=== PATIENT | female | born 1970 | race Caucasian/White ===

== ENCOUNTER 2021-06-29 09:57 | Outpatient (REF) | payer OTHER, SELFPAY ==
--- NOTE | ~2021-06-29 | US_ITS ---
EXAMINATION: US ABDOMEN COMPLETE CLINICAL INFORMATION: Right upper quadrant abdominal swelling, mass and lump. COMPARISON: None TECHNIQUE: Real-time imaging of the abdominal viscera. FINDINGS: PANCREAS: Normal. ABDOMINAL AORTA: The proximal, mid, and distal segments are normal in caliber. INFERIOR VENA CAVA: Visualized portions are normal. LIVER: Slightly enlarged measuring up to 18.2 cm. The liver contour is normal. There is diffuse increased liver parenchymal echogenicity, consistent with hepatic steatosis. Probable right hepatic focal fatty sparing. No focal hepatic lesion. There is no intrahepatic biliary duct dilatation seen. GALLBLADDER: Normal. The gallbladder is physiologically distended without evidence of stones, sludge, polyps, wall thickening or pericholecystic fluid. COMMON BILE DUCT: Normal in caliber measuring 0.3 cm in diameter. RIGHT KIDNEY: Normal. No hydronephrosis. No renal calculi or focal parenchymal lesions. The kidney measures 11.7 cm in maximum dimension. LEFT KIDNEY: Simple lower pole cyst measuring 1.2 cm. Findings are not clinically significant, and no followup imaging is recommended. No hydronephrosis or renal calculi. The kidney measures 11.6 cm in maximum dimension. SPLEEN: Normal. The spleen measures 10.1 cm in maximum dimension. FREE FLUID: None. US/US abdomen complete IMPRESSION: 1. Mild hepatomegaly. Hepatic steatosis with focal fatty sparing. No additional hepatic parenchymal lesion or biliary ductal dilatation. 2. No cholelithiasis, gallbladder wall thickening, or pericholecystic free fluid to suggest acute cholecystitis.
== END 2021-06-29 09:58 | disposition home or self-care (01) ==
LOC: HO.HMGCX 09:57
PROVIDERS: PCP Internal Medicine; Visit Provider Internal Medicine
DX: R19.01 Right upper quadrant abdominal swelling, mass and lump (principal)
CPT/HCPCS: 76700

== ENCOUNTER 2021-11-11 08:03 | Inpatient (IN) | payer OTHER, SELFPAY ==
[2021-11-11] VITALS (8 sets, daily range): BP systolic 150–169; BP diastolic 75–92; PULSE 72–103; RESP 11–18; TEMP 36.8–36.9; O2SAT 98–99; BMI 27.3
--- NOTE | ~2021-11-11 | CT_ITS ---
EXAMINATION: CT HEAD AND FACIAL BONES WITHOUT CONTRAST CLINICAL INFORMATION: Facial trauma with left nostril bleeding. COMPARISON: None TECHNIQUE: Multiple axial images of the head and facial bones were obtained without administration of intravenous contrast. Coronal and sagittal reformatted images were obtained. FINDINGS: Head: The cortical sulci are normal. The lateral ventricles are symmetrical. The third and fourth ventricles are in their normal midline position. The basilar and prepontine cisterns are unremarkable. There is no acute intra or extracerebral abnormality. There is no mass effect or midline shift. Sections through the bony calvarium are unremarkable. The mastoid air cells are clear. Facial Bones: There is an acute, minimally displaced oblique fracture of the left nasal bones. The right nasal bones appear intact. There is mild mid nasal CPAP total deviation, apex to the left with small apical spur. Nasal mucosal thickening is seen, left greater than right. Aerated mucus or hemorrhage is seen in the posterior left nasal canal extending into the nasopharynx. The paranasal sinuses show a very small left maxillary air-fluid level. Aerated mucus and/or polyp is seen superomedially measuring 1.4 x 0.9 x 1.3 cm (image 68, series 6; image 134, series 2). Mild mucosal thickening is seen in the right maxillary sinus. A very small air-fluid levels seen in the left sphenoid sinus. Mild to moderate mucosal thickening is seen in the ethmoid sinuses, left greater than right. The frontal sinuses are clear. The maxillary bones, zygomatic arches and orbits are unremarkable. The orbital contents are unremarkable. The soft tissues are unremarkable. CT/CT facial bones wo con IMPRESSION: 1. No acute intracranial abnormality. 2. Acute, minimally displaced left nasal bone fracture. The aerated mucus/hemorrhage is seen posteriorly in the left nasal canal and nasopharynx. 3. Inflammatory changes in the paranasal sinuses as detailed above. A definitive acute fracture is not seen. There is small air-fluid levels in the left maxillary and sphenoid sinuses may be inflammatory as well.
--- NOTE | 2021-11-11 08:47 | ED.EPISTAXIS ---
History of Present Illness General Chief Complaint: Epistaxis Stated Complaint: possible concussion cant stop bleeding nose Time Seen by Provider: 11/11/21 08:47 Source: patient Mode of arrival: ambulatory Limitations: no limitations History of Present Illness HPI Narrative: 51-year-old female came in for evaluation of left nostril bleeding. 51-year-old female is bleeding from the left nostril since this morning, patient recently was playing with her big size dog got head and face, no LOC, patient as a result sustaining right subconjunctival hemorrhage, bilateral infraorbital hematoma, patient will come this morning with left nostril bleeding. Patient noted to have tremors patient is a former alcohol drinker has been sober for the past 7 days. Related Data Home Medications Medication Instructions Recorded Confirmed acetaminophen 325 mg tablet 650 mg PO Q6H PRN 11/11/21 11/11/21 multivitamin 1 tab PO DAILY 11/11/21 11/11/21 Previous Rx's Medication Instructions Recorded escitalopram oxalate 20 mg tablet 40 mg PO DAILY #60 tab 05/22/21 lisinopril 20 1 tab PO DAILY #90 tab 05/22/21 mg-hydrochlorothiazide 12.5 mg tablet Allergies Allergy/AdvReac Type Severity Reaction Status Date / Time No Known Allergies Allergy Verified 05/22/21 09:54 Review of Systems Review of Systems: All other systems are reviewed and are negative Constitutional: Reports as per HPI and Reports no additional constitutional complaints Eyes: Reports as per HPI and Reports no additional eye complaints Reports system reviewed and no additional complaints, except as documented Cardiovascular: Reports as per HPI and Reports no additional cardiovascular complaints Respiratory: Reports as per HPI and Reports no additional respiratory complaints Gastrointestinal: Reports as per HPI and Reports no additional gastrointestinal complaints Genitourinary: Reports no additional female genitourinary complaints Musculoskeletal: Reports no additional musculoskeletal complaints Skin/Breast: Reports system reviewed and no additional complaints, except as docu Psychiatric: Reports no additional psychiatric complaints Endocrine: Reports no additional endocrine complaints Hematologic/Lymphatic: Reports no additional hematologic/lymphatic complaints Allergic/Immunologic: Reports no additional allergic/immunologic complaints Reports system reviewed and no additional complaints, except as documented and Reports Abnormal speech present [facility] Past Medical History Medical History Generalized anxiety disorder Poison lucy dermatitis Surgical History Hx of section Family History Family History Father No problems noted. Mother History of COPD Social History Social History Alcohol intake: never Patient Tobacco Use Status: Never used Tobacco Years Smoked: 10 yrs e-Cigarette/Vaping Use: Never Used Use of substances other than those prescribed or required for medical reasons: No Advance Directives: Yes Advance Directives Information Provided: Yes Advance Directives on File: No Physical Exam Vital Signs: Vital Signs: Last Vital Signs Pulse 80 11/11/21 13:07 Resp 11 L 11/11/21 13:07 BP 156/75 H 11/11/21 13:07 Pulse Ox 98 11/11/21 11:57 BMI result Body Mass Index 27.3 Vital signs have been reviewed as appeared to be correct. Blood pressure normal. Heart rate normal. Respiration rate normal. Temperature normal. Oxygen saturation normal. Appearance: Alert. Oriented X3. No acute distress. Anxious, involuntary tremor. Head: Normal external exam. Normocephalic. Atraumatic. No Davis signs noted. No raccoon eyes noted Eyes: PERRLA. EOMI. Right subconjunctival hemorrhage, bilateral infraorbital ecchymosis. ENT: TM's Normal. Pharynx normal. Left nostril active bleeding, unable to determine the site of bleeding. After applying 10 minutes of nose tensioning pressure from outside unable to stop the bleeding, left nostril packing appears to control the left nose bleeding now. Neck: Normal inspection. Neck supple. FROM. No adenopathy. Thyroid Normal. No meningeal signs. No neck mass noted. CVS: Normal heart rate and rhythm. Heart sound normal. No murmurs noted. Pulses normal throughout. Respiratory: No respiratory distress. Painless inspiration. Breath sounds normal. No wheezes/rales/rhonchi noted. Chest nontender. No accessory muscle usage noted or decreased air movement noted. Abdomen: Soft and nontender. Bowel sounds normal in all 4 quadrants. No distention noted. No organomegaly noted. No visible injury noted. Back: No CVA tenderness. Full range of motion noted. Skin: Skin warm and dry. Normal skin color. Normal skin turgor. No rashes/lesions/lacerations noted. Extremities: No lower extremity edema. Extremities exhibit normal range of motion. Extremities nontender. Neuro: Oriented X 3. Cranial nerve exam: II-XII are grossly intact No motor deficit. No sensory deficit. Reflexes normal. Course Course Course Narrative: Assessment and plan. 51-year-old female with chronic alcohol abuse, patient stop drinking for 7-10 days cold turkey presented with symptoms of alcohol withdrawal. Patient also came for evaluation of left nostril bleeding. Patient also is having sign of facial trauma the patient claimed after been head by her dog in the face. Patient declined any domestic abuse issue. 1. Left nostril bleed that stopped after anterior packing then the packing was removed from the nostril patient remained with no bleeding. 2. Head/facial CT unremarkable. 3. Sign of alcohol withdrawal. Will start the patient on a phenobarb and admit to the hospital. MDM - Epistaxis Medical Records Attestation: I reviewed the patient's medical records. Lab Data Attestation: I reviewed the patient's lab results. Result diagrams: 11/11/21 09:24 11/11/21 09:24 Labs: Lab Results 11/11/21 11/11/21 11/11/21 Range/Units 09:24 09:24 09:24 WBC 7.9 (4.8-10.8) X10*3/uL RBC 3.05 L (4.20-5.50) X10*6/uL Hgb 11.7 L (12.0-16.0) g/dl Hct 32.6 L (37.0-47.0) % MCV 106.9 H (80.0-98.0) fL MCH 38.4 H (27.0-33.0) pg MCHC 35.9 H (31.0-35.0) g/dl RDW 14.1 (11.0-16.0) % Plt Count 139 L (160-400) X10*3/uL MPV 10.0 (9.4-12.3) fL Immature Gran % (Auto) 0.3 (0.0-0.4) % Neut % (Auto) 64.9 (45-73) % Lymph % (Auto) 19.4 L (20-40) % [place] % (Auto) 14.4 H (2-11) % Eos % (Auto) 0.5 (0-4) % Baso % (Auto) 0.5 (0-2) % Lymph # (Auto) 1.5 (1.2-4.9) X10*3/uL [place] # (Auto) 1.1 (0.1-1.2) X10*3/uL Eos # (Auto) 0.0 (0.0-0.4) X10*3/uL Baso # (Auto) 0.0 (0.0-0.2) X10*3/uL Abs Immat Gran (auto) 0.02 (0.00-0.03) X10*3/uL Absolute Neuts (auto) 5.1 (2.0-8.3) x10*3/uL Absolute Nucleated RBC 0.000 (0.0-0.012) X10*3/uL Nucleated RBC % (auto) 0.0 (0.0-0.2) /100WBC PT 14.2 H (9.9-13.0) SEC INR 1.2 H (0.9-1.1) APTT 37.5 (24.1-38.0) SEC Sodium 137 (135-145) mmol/L Potassium 3.3 (3.3-5.1) mmol/L Chloride 97 (96-108) mmol/L Carbon Dioxide 28 (22-29) mmol/L Anion Gap 15 (12-20) BUN 14 (9-16) mg/dL Creatinine 0.69 (0.5-1.4) mg/dL Estim Creat Clear Calc 83.7 Estimated GFR > 60 Random Glucose 117 H (60-115) mg/dL Calcium 9.1 (8.4-10.2) mg/dL Total Bilirubin 3.4 H (0.0-1.0) mg/dL Direct Bilirubin 2.1 H (0.0-0.5) mg/dL AST 145 H (5-31) U/L ALT 46 H (0-31) U/L Alkaline Phosphatase 189 H (39-117) U/L Total Protein 7.7 (6.5-8.0) g/dL Albumin 3.7 (3.5-5.0) g/dL Lipase 84 H (8-78) U/L Ethyl Alcohol mg/dL 11/11/21 Range/Units 09:24 WBC (4.8-10.8) X10*3/uL RBC (4.20-5.50) X10*6/uL Hgb (12.0-16.0) g/dl Hct (37.0-47.0) % MCV (80.0-98.0) fL MCH (27.0-33.0) pg MCHC (31.0-35.0) g/dl RDW (11.0-16.0) % Plt Count (160-400) X10*3/uL MPV (9.4-12.3) fL Immature Gran % (Auto) (0.0-0.4) % Neut % (Auto) (45-73) % Lymph % (Auto) (20-40) % [place] % (Auto) (2-11) % Eos % (Auto) (0-4) % Baso % (Auto) (0-2) % Lymph # (Auto) (1.2-4.9) X10*3/uL [place] # (Auto) (0.1-1.2) X10*3/uL Eos # (Auto) (0.0-0.4) X10*3/uL Baso # (Auto) (0.0-0.2) X10*3/uL Abs Immat Gran (auto) (0.00-0.03) X10*3/uL Absolute Neuts (auto) (2.0-8.3) x10*3/uL Absolute Nucleated RBC (0.0-0.012) X10*3/uL Nucleated RBC % (auto) (0.0-0.2) /100WBC PT (9.9-13.0) SEC INR (0.9-1.1) APTT (24.1-38.0) SEC Sodium (135-145) mmol/L Potassium (3.3-5.1) mmol/L Chloride (96-108) mmol/L Carbon Dioxide (22-29) mmol/L Anion Gap (12-20) BUN (9-16) mg/dL Creatinine (0.5-1.4) mg/dL Estim Creat Clear Calc Estimated GFR Random Glucose (60-115) mg/dL Calcium (8.4-10.2) mg/dL Total Bilirubin (0.0-1.0) mg/dL Direct Bilirubin (0.0-0.5) mg/dL AST (5-31) U/L ALT (0-31) U/L Alkaline Phosphatase (39-117) U/L Total Protein (6.5-8.0) g/dL Albumin (3.5-5.0) g/dL Lipase (8-78) U/L Ethyl Alcohol < 10 mg/dL Imaging Data Head/facial CT: Attestation: I personally reviewed and interpreted this imaging study as follows: Radiologist's impression: 1. No acute intracranial abnormality. 2. Acute, minimally displaced left nasal bone fracture. The aerated mucus/hemorrhage is seen posteriorly in the left nasal canal and nasopharynx. 3. Inflammatory changes in the paranasal sinuses as detailed above. A definitive acute fracture is not seen. There is small air-fluid levels in the left maxillary and sphenoid sinuses may be inflammatory as well. Procedures Epistaxis Control Time Out Performed: Yes Nostril: Yes left Direct inspection: Yes unable to visualize Direct inspection method: Yes nasal speculum Results of treatment: Yes bleeding controlled Complications: Yes none Discharge Plan Discharge Clinical Impression: Epistaxis, Fracture, nasal Patient Disposition: Admitted As Inpatient Prescriptions: No Action multivitamin Tablet 1 tab PO DAILY RF: 0 acetaminophen 325 mg Tablet 650 mg PO Q6H PRN (Reason: Pain) RF: 0 escitalopram oxalate 20 mg tablet 40 mg PO DAILY Qty: 60 RF: 2 lisinopril-hydrochlorothiazide 20-12.5 mg tablet 1 tab PO DAILY Qty: 90 RF: 1
[2021-11-11 09:27] LABS: MANUAL DIFF FLAG NO
[2021-11-11] MEDS: oxyCODONE HCl Immed Release 5 MG TABLET PO (09:28)
[2021-11-11 09:30] LABS: Basophils Percent Auto 0.5 % (0-2); Eosinophils Percent Auto 0.5 % (0-4); Hematocrit 32.6 % (37.0-47.0); Hemoglobin 11.7 g/dl (12.0-16.0); Imm Gran Abs Auto 0.02 X10*3/uL (0.00-0.03); Imm Gran Pct Auto 0.3 % (0.0-0.4); Lymphocytes Absolute Auto 1.5 X10*3/uL (1.2-4.9); Lymphocytes Percent Auto 19.4 % (20-40); Mean Corpuscular HGB Conc 35.9 g/dl (31.0-35.0); Mean Corpuscular Hemoglobin 38.4 pg (27.0-33.0); Mean Corpuscular Volume 106.9 fL (80.0-98.0); Monocytes Absolute Auto 1.1 X10*3/uL (0.1-1.2); Monocytes Percent Auto 14.4 % (2-11); Neutrophils Absolute Auto 5.1 x10*3/uL (2.0-8.3); Neutrophils Percent Auto 64.9 % (45-73); Platelet Count 139 X10*3/uL (160-400); Red Blood Count 3.05 X10*6/uL (4.20-5.50); Red Cell Distribution Width 14.1 % (11.0-16.0); White Blood Count 7.9 X10*3/uL (4.8-10.8)
[2021-11-11 09:35] LABS: INTERNATIONAL NORM RATIO 1.2 (0.9-1.1); Prothrombin Time 14.2 SEC (9.9-13.0)
[2021-11-11 09:37] LABS: Partial Thromboplastin Time 37.5 SEC (24.1-38.0)
[2021-11-11 09:44] LABS: Alanine Aminotransferase 46 U/L (0-31); Albumin Level 3.7 g/dL (3.5-5.0); Alkaline Phosphatase 189 U/L (39-117); Anion Gap 15 (12-20); Aspartate Amino Transferase 145 U/L (5-31); Bilirubin Direct 2.1 mg/dL (0.0-0.5); Bilirubin Total 3.4 mg/dL (0.0-1.0); Blood Urea Nitrogen 14 mg/dL (9-16); Calcium 9.1 mg/dL (8.4-10.2); Carbon Dioxide 28 mmol/L (22-29); Chloride 97 mmol/L (96-108); Creatinine Clr Calc Pharmacy 83.7; Estimated Glomerular Filt Rate > 60; Glucose Random 117 mg/dL (60-115); Lipase 84 U/L (8-78); Potassium 3.3 mmol/L (3.3-5.1); Sodium 137 mmol/L (135-145); Total Protein 7.7 g/dL (6.5-8.0)
[2021-11-11 09:45] LABS: Ethanol < 10 mg/dL
--- NOTE | 2021-11-11 12:21 | PC.NURSE ---
At approximately 11:45, pt's called ED seeking a status update on pt. This group underwriter approached patient to ascertain permission to speak with . Pt granted permission and updated. Of note, pt noted to be extremely tremulous to the point that she was unable to grasp the cord for the call grissom or her blanket to reposition it. Pt appeared oriented but had to search for words a bit. Concern about tremors shared with NATALI Cullen who will continue with patient safety checks. Concern also shared with Dr. Christopher. Dr. Christopher reported he, too, was concerned about tremors and questioned patient about alcohol abuse/withdrawals to which she denied such. Dr. Christopher plans to offer patient admission for suspected alcohol withdrawal with the hope that she will accept, as nosebleed is currently under control.
[2021-11-11] MEDS: PHENobarbitaL sodium 130 MG/ML VIAL 191.2 MG IM (13:09)
[2021-11-11] MEDS: 0.9 % Sodium Chloride 1,000 ML 999 ML IV (13:09)
--- NOTE | 2021-11-11 13:23 | PHA.MEDREC ---
Pharmacy Consult ? Medication Reconciliation Pharmacy has completed the medication reconciliation. There are no remarkable issues for provider's attention. Shayy Holliday, MayteD
--- NOTE | 2021-11-11 14:08 | P.HPHOSP_ITS ---
History of Present Illness Date of Service: 11/11/21 Chief Complaint: epistaxis, abnormal gait, tremors a 51 years old lady with PMH of alcohol abuse, anxiety disorder among others who presented to the hospital with left nostril bleeding. The patient reports that she was head and was hit by her dog To her face almost 1 week ago. She blood at that time but then everything stop. Today she was having a shower when she started to bleed. It was only the left nostril. Stop while in the emergency. She reports she had hallucination of a pair after leaving the shower this morning associated with increased tremors bilaterally and tongue fasciculation. Her gait became wide and unsteady But no reported falling. The patient reports she stopped drinking almost 2 weeks ago with no to minimal symptoms in the days after stopping. She never had withdrawal symptoms before. In the emergency source of bleeding controlled. Blood work showed transaminitis, no previous record to compare. Admitted for further evaluation and treatment. Review of Systems Review of Systems: No fever, chills But has increase anxiety and abnormal gait No chest pain, palpitation No shortness of breath or coughing No abdominal pain, nausea or vomiting No urinary symptoms No any rash or wounds reporting tremors and tongue fasciculations PMFSH Medical History Generalized anxiety disorder Poison lucy dermatitis Family History Father No problems noted. Mother History of COPD Surgical History Hx of section Social History Alcohol intake: never Patient Tobacco Use Status: Never used Tobacco Years Smoked: 10 yrs e-Cigarette/Vaping Use: Never Used Use of substances other than those prescribed or required for medical reasons: No Advance Directives: Yes Advance Directives Information Provided: Yes Advance Directives on File: No Meds Allergies Allergy/AdvReac Type Severity Reaction Status Date / Time No Known Allergies Allergy Verified 05/22/21 09:54 Active Medications: Current Medications Thiamine HCl 400 mg/ Sodium (Chloride) 104 mls @ 202 mls/hr IV ONCE ONE Stop: 11/11/21 14:26 Medication (No Benzodiazepines) 1 each MISCELLANE DAILY [facility] Pharmacy Consult (Consult Rx Perform Med Rec) 1 each MISCELLANE ONCE PRN PRN Reason: Consult order Phenobarbital (Phenobarbital 30 Mg Tablet) 30 mg PO BID [facility]; Protocol Stop: 11/13/21 21:01 Phenobarbital (Phenobarbital 15 Mg Tablet) 15 mg PO BID [facility]; Protocol Stop: 11/15/21 21:01 Phenobarbital (Phenobarbital 15 Mg Tablet) 15 mg PO DAILY [facility]; Protocol Stop: 11/17/21 09:01 Phenobarbital Sodium (Phenobarbital Sodium 130 Mg/Ml Vial) 143.4 mg IM Q3H [facility]; Protocol Stop: 11/11/21 19:01 Home Medications Medication Instructions Recorded Confirmed Last Taken Type acetaminophen 325 mg tablet 650 mg PO Q6H PRN 11/11/21 11/11/21 11/10/21 History multivitamin 1 tab PO DAILY 11/11/21 11/11/21 11/10/21 History Physical Exam Vital Signs and Narrative: Vital Signs: Last Vital Signs Pulse 80 11/11/21 13:07 Resp 11 L 11/11/21 13:07 BP 156/75 H 11/11/21 13:07 Pulse Ox 98 11/11/21 11:57 BMI result Body Mass Index 27.3 Const: Other: Constitutional : Alert, oriented, mildly stressed out with anxiety Neck : Normal inspection, Supple Face: ?left nostril packing appears to control the left nose bleeding?, right subconjunctival hemorrhage, bilateral infraorbital hematoma Cardiovascular : RRR, S1 S2, no lower extremity edema Respiratory : Good bilateral air entry, no crackles, wheezes or rhonchi Gastrointestinal: soft, lax, Normal bowel sounds, Non tender, tympanic Skin : Warm, Dry Neurological : Alert & oriented x3, No focal deficit, bilateral tremors at rest an intentional mainly, cranial nerves 2-12 within normal, white based gait Results Labs CBC and Chem 7: 11/11/21 09:24 11/11/21 09:24 Labs: Laboratory Results - last 24 hr 11/11/21 11/11/21 11/11/21 09:24 09:24 09:24 MCV 106.9 H MCH 38.4 H MCHC 35.9 H RDW 14.1 Plt Count 139 L MPV 10.0 Immature Gran % (Auto) 0.3 Neut % (Auto) 64.9 Lymph % (Auto) 19.4 L [place] % (Auto) 14.4 H Eos % (Auto) 0.5 Baso % (Auto) 0.5 Lymph # (Auto) 1.5 [place] # (Auto) 1.1 Eos # (Auto) 0.0 Baso # (Auto) 0.0 Abs Immat Gran (auto) 0.02 Absolute Neuts (auto) 5.1 Absolute Nucleated RBC 0.000 Nucleated RBC % (auto) 0.0 PT 14.2 H INR 1.2 H APTT 37.5 Anion Gap 15 Estim Creat Clear Calc 83.7 Estimated GFR > 60 Random Glucose 117 H Calcium 9.1 Total Bilirubin 3.4 H Direct Bilirubin 2.1 H AST 145 H ALT 46 H Alkaline Phosphatase 189 H Total Protein 7.7 Albumin 3.7 Lipase 84 H Ethyl Alcohol 11/11/21 09:24 MCV MCH MCHC RDW Plt Count MPV Immature Gran % (Auto) Neut % (Auto) Lymph % (Auto) [place] % (Auto) Eos % (Auto) Baso % (Auto) Lymph # (Auto) [place] # (Auto) Eos # (Auto) Baso # (Auto) Abs Immat Gran (auto) Absolute Neuts (auto) Absolute Nucleated RBC Nucleated RBC % (auto) PT INR APTT Anion Gap Estim Creat Clear Calc Estimated GFR Random Glucose Calcium Total Bilirubin Direct Bilirubin AST ALT Alkaline Phosphatase Total Protein Albumin Lipase Ethyl Alcohol < 10 Imaging Radiologist's Impressions: Impressions Face CT 11/11/21 10:21 IMPRESSION: 1. No acute intracranial abnormality. 2. Acute, minimally displaced left nasal bone fracture. The aerated mucus/hemorrhage is seen posteriorly in the left nasal canal and nasopharynx. 3. Inflammatory changes in the paranasal sinuses as detailed above. A definitive acute fracture is not seen. There is small air-fluid levels in the left maxillary and sphenoid sinuses may be inflammatory as well. Head CT 11/11/21 10:21 IMPRESSION: 1. No acute intracranial abnormality. 2. Acute, minimally displaced left nasal bone fracture. The aerated mucus/hemorrhage is seen posteriorly in the left nasal canal and nasopharynx. 3. Inflammatory changes in the paranasal sinuses as detailed above. A definitive acute fracture is not seen. There is small air-fluid levels in the left maxillary and sphenoid sinuses may be inflammatory as well. Assessment and Plan (1) Epistaxis: Status: Acute (2) Fracture, nasal: Status: Acute (3) Generalized anxiety disorder: Status: Acute (4) Transaminitis: Status: Acute (5) Abnormal gait: Status: Acute ?a 51 years old lady with PMH of alcohol abuse, anxiety disorder among others who presented to the hospital with left nostril bleeding and abnormal gait. Epistaxis Nasal fracture Seen on CT scan, hemostasis achieved in the emergency with compression and nasal spray To use Afrin with pressure if Rebleed abnormal gait, tremors less likely to be a result of withdrawal as the patient report to week abstinence from drinking CT head negative for any acute findings To check vitamin B1, folic acid Concern about her neck course alcohol disease to get Neurology evaluation to do physical therapy Elevated INR, transaminitis Likely a result of alcoholism, no previous records available To give vitamin K to prevent more bleeding Repeat LFT tomorrow Generalized anxiety disorder continue home medications to get care team evaluation DVT PPX SCDs Quality Stroke Does the patient have a stroke diagnosis?: No VTE Prior VTE?: No VTE Risk Level:: Medical - low VTE Device Contraindication: Treatment Not Indicated VTE Drug Contraindication: Treatment Not Indicated
[2021-11-11] MEDS: Folic Acid 1 MG TABLET PO (14:47)
[2021-11-11] MEDS: Thiamine HCL 400 MG in 0.9 % Sodium Chloride 100 ML 202 MG IV (14:47)
[2021-11-11] MEDS: Phytonadione (Vit K1) Oral 10 MG/ML AMPUL 2.5 MG PO (14:55)
[2021-11-11 15:15] LABS: Folate 5.1 ng/mL (> or = 4.0); Vitamin B12 537 pg/mL (200-900)
[2021-11-11] MEDS: 0.9 % Sodium Chloride Flush 3 ML SYRINGE IVFLUSH (16:52)
[2021-11-11] MEDS: PHENobarbitaL sodium 130 MG/ML VIAL 143.4 MG IM ×2 (16:53→21:11)
[2021-11-11] MEDS: Thiamine HCL 100 MG in 0.9 % Sodium Chloride 100 ML 202 MG IV (21:11)
[2021-11-12] MEDS: 0.9 % Sodium Chloride Flush 3 ML SYRINGE IVFLUSH ×2 (01:04→08:42)
[2021-11-12 03:57] VITALS: BP 136/84; PULSE 92; RESP 18; TEMP 36.7; O2SAT 97
--- NOTE | 2021-11-12 04:19 | PC.NURSE ---
NOTE SENT TO HOSPITALIST ON DUTY OF PATIENT REPORTING HALLUCINATIONS. SHE DESCRIBED SEEING A WOMAN SITTING IN A CHAIR NEXT TO HER BED, SEEING FLIES IN THE AIR OF HER ROOM AND HITTING INTO THE WALL, ALSO UPON AWAKENING SAW HER DAUGHTERS FACE ON A MOVIE PLAYING ON HER PHONE. SHE IS NOTED GIGGLY BUT NOT FEARFUL OR SCARED. DENIES PREVIOUS EPISODES FROM TODAY, BUT MAYBE IN THE PAST. VSS, WILL MONITOR CLOSELY, AND NO NEW ORDERS FROM MD. PT ON PHENOBARBITOL PROTOCOL AND CIWA MONITORING WHICH HER SCORE WAS 6. ASSIST OF ONE TO BR, DENIED PAIN, N/V, HEADACHE, OR AUDITORY SOUNDS.
[2021-11-12 06:01] LABS: Hematocrit 29.4 % (37.0-47.0); Hemoglobin 10.3 g/dl (12.0-16.0); Mean Corpuscular Hemoglobin 38.1 pg (27.0-33.0); Mean Corpuscular Volume 108.9 fL (80.0-98.0); Platelet Count 119 X10*3/uL (160-400); White Blood Count 4.9 X10*3/uL (4.8-10.8)
[2021-11-12 06:36] LABS: Alanine Aminotransferase 40 U/L (0-31); Albumin Level 3.3 g/dL (3.5-5.0); Alkaline Phosphatase 143 U/L (39-117); Anion Gap 12 (12-20); Aspartate Amino Transferase 111 U/L (5-31); Bilirubin Direct 1.4 mg/dL (0.0-0.5); Blood Urea Nitrogen 8 mg/dL (9-16); Calcium 8.5 mg/dL (8.4-10.2); Carbon Dioxide 31 mmol/L (22-29); Chloride 100 mmol/L (96-108); Creatinine Clr Calc Pharmacy 99.5; Estimated Glomerular Filt Rate > 60; Glucose Random 91 mg/dL (60-115); Potassium 2.5 mmol/L (3.3-5.1); Sodium 140 mmol/L (135-145); Total Protein 6.6 g/dL (6.5-8.0)
--- NOTE | 2021-11-12 06:41 | PC.NURSE ---
0636 CRITICAL LAB VALUE RECEIVED OF POTASSIUM LEVEL OF 2.5, PT RESTING QUIETLY IN BED. HOSPITALIST ON DUTY ALERTED VIA [employer] TEXT AND SHE ACKNOWLEDGED MESSAGE. WILL WATCH FOR NEW ORDERS AND PASS INFORMATION TO ONCOMING RN IT IS 0643.
--- NOTE | 2021-11-12 07:37 | P.CDIC_ITS ---
CDI Concurrent Query Documentation Clarification: PHYSICIAN'S DOCUMENTATION REQUEST Date of Query: 11/12/21 0737 Patient Name: Rianna Patterson Admit Date: 11/11/21 Dear Doctor, A review of the medical record indicates additional documentation may be needed. Please review below and update the documentation accordingly. Risk Factors/Clinical Indicators/Treatments Potassium level on 11/12/21: 2.5 Order for KCL 10 meq in 100 mls IV Q1H, 2 bags Based on the above, could you clarify in the Progress Notes the appropriate diagnosis, if significant, that supports the above abnormalities and additional evaluation, monitoring, and/or treatment rendered: * Based on the above, could you provide an associated diagnosis that would support the low potassium value requiring additional treatment, evaluation, and monitoring * Other (please specify) * Unable to determine Use of terms such as suspected, likely, concern for, or probable (associated with a specific diagnosis that is being evaluated, monitored, or treated as if it exists) are acceptable and can be coded in the inpatient setting, when documented at the time of discharge. Thank you, Kaylie Santacruz , RN Extension: [phone] Please use your independent medical judgment in providing your response. THIS QUERY IS PART OF THE PERMANENT MEDICAL RECORD Provider Response: Other Other Diagnosis: in notes
[2021-11-12 08:00] VITALS: BP 138/83; PULSE 72; RESP 19; TEMP 37.1; O2SAT 95
[2021-11-12] MEDS: Potassium Chloride/H20 10 MEQ/100 ML PIGGYBACK 100 MEQ IV ×2 (08:32→12:56)
[2021-11-12] MEDS: Folic Acid 1 MG TABLET PO (08:41)
[2021-11-12] MEDS: Multivitamin TABLET 1 TAB PO (08:41)
[2021-11-12] MEDS: lisinopriL 20 MG TABLET PO (08:41)
[2021-11-12] MEDS: Escitalopram Oxalate 20 MG TABLET 40 MG PO (08:41)
[2021-11-12] MEDS: PHENobarbitaL 30 MG TABLET PO (08:41)
[2021-11-12] MEDS: Potassium Chloride Packet 20 MEQ PACKET 40 MEQ PO ×2 (08:42→12:56)
--- NOTE | 2021-11-12 09:39 | PM.NEUROCN ---
History of Present Illness Data of Consult Service Date: 11/12/21 Primary Care Provider: Unknown Physician HPI Reason for consult: Tremor 51 years old woman who has been drinking significant amount of alcohol for decades stop drinking couple of weeks ago was suffering from tremor. She probably fell down recently and hitting her head sustained some facial injury. There was no history of seizure disorder. She said that she was very inclined to stop drinking completely because of her 9 years old son. Review of Systems Review of Systems: No recent cold or flu-like illness PMFSH Past Medical History Medical History Generalized anxiety disorder Poison lucy dermatitis Family History Family History Father No problems noted. Mother History of COPD Surgical History Surgical History Hx of section Social History Social History Household Members: Spouse and Children Housing: House Do you presently have visiting nurse or other home services: No Alcohol intake: never Patient Tobacco Use Status: Never used Tobacco Years Smoked: 10 yrs e-Cigarette/Vaping Use: Never Used Use of substances other than those prescribed or required for medical reasons: No Currently Displaying Signs/Symptoms of Drug Intoxication Withdrawal: No Have you been hit, kicked, punched, or otherwise hurt by someone within the past year? If so, by whom?: No Do you feel safe in your current relationship?: Yes Is there a partner from a previous relationship who is making you feel unsafe now?: No Are you made to feel afraid or neglected: No [facility] Practices: [facility] Advance Directives: Yes Advance Directives Information Provided: Yes Advance Directives on File: No Advance Directives Date on File: 11/11/21 Do you have thoughts of harming others: None Do you have a plan to hurt others: No Plan Recently lost weight without trying: No Nutrition Risks: No Nutritional Risk Meds Allergies Allergy/AdvReac Type Severity Reaction Status Date / Time No Known Allergies Allergy Verified 05/22/21 09:54 Active Medications: Current Medications Acetaminophen (Acetaminophen 325 Mg Tablet) 650 mg PO Q6H PRN PRN Reason: Pain, Mild (Pain Scale 1-3) Escitalopram Oxalate (Escitalopram Oxalate 20 Mg Tablet) 40 mg PO DAILY [facility] Last Admin: 11/12/21 08:41 Dose: 40 mg Documented by: Folic Acid (Folic Acid 1 Mg Tablet) 1 mg PO DAILY [facility] Last Admin: 11/12/21 08:41 Dose: 1 mg Documented by: Potassium Chloride () 10 meq in 100 mls @ 100 mls/hr IV Q1H MARCELLO Stop: 11/12/21 09:59 Last Infusion: 11/12/21 09:37 Dose: Infused Documented by: Thiamine HCl 100 mg/ Sodium (Chloride) 101 mls @ 202 mls/hr IV BID [facility] Lisinopril (Lisinopril 20 Mg Tablet) 20 mg PO DAILY [facility]; Protocol Last Admin: 11/12/21 08:41 Dose: 20 mg Documented by: Medication (No Benzodiazepines) 1 each MISCELLANE DAILY [facility] Multivitamins/Vitamin C (Multivitamin Tablet) 1 tab PO DAILY [facility] Last Admin: 11/12/21 08:41 Dose: 1 tab Documented by: Ondansetron HCl (Ondansetron Hcl 4 Mg/2 Ml Vial) 4 mg IVPUSH Q8H PRN PRN Reason: Nausea and Vomiting Pharmacy Consult (Consult Rx Perform Med Rec) 1 each MISCELLANE ONCE PRN PRN Reason: Consult order Phenobarbital (Phenobarbital 30 Mg Tablet) 30 mg PO BID [facility]; Protocol Stop: 11/13/21 21:01 Last Admin: 11/12/21 08:41 Dose: 30 mg Documented by: Phenobarbital (Phenobarbital 15 Mg Tablet) 15 mg PO BID [facility]; Protocol Stop: 11/15/21 21:01 Phenobarbital (Phenobarbital 15 Mg Tablet) 15 mg PO DAILY [facility]; Protocol Stop: 11/17/21 09:01 Potassium Chloride (Potassium Chloride Packet 20 Meq Packet) 40 meq PO Q4H [facility] Stop: 11/12/21 12:01 Last Admin: 11/12/21 08:42 Dose: 40 meq Documented by: Sodium Chloride (0.9 % Sodium Chloride Flush 3 Ml Syringe) 3 ml IVFLUSH QSHIFT [facility] Last Admin: 11/12/21 08:42 Dose: 3 ml Documented by: Home Medications Medication Instructions Recorded Confirmed Last Taken Type acetaminophen 325 mg tablet 650 mg PO Q6H PRN 11/11/21 11/11/21 11/10/21 History multivitamin 1 tab PO DAILY 11/11/21 11/11/21 11/10/21 History Physical Exam Vital Signs: Vital Signs: Last Vital Signs Temp 98.8 F 11/12/21 08:00 Pulse 72 11/12/21 08:00 Resp 19 11/12/21 08:00 BP 138/83 11/12/21 08:00 Pulse Ox 95 11/12/21 08:00 BMI result Body Mass Index 27.3 Neuro: Other: bilateral facial ecchymosis in conjunctiva hemorrhage is. She was alert and awake with normal spontaneity of speech fluency comprehension and anxious affect. There was moderate bilateral hand tremor. Zjjdag-[id number] testing revealed mild ataxia. Deep tendon reflexes were absent with flexor plantars. Results Labs CBC & Chem 7: 11/12/21 05:30 11/12/21 05:30 Labs: Short CBC 11/12/21 Range/Units 05:30 WBC 4.9 (4.8-10.8) X10*3/uL Hgb 10.3 L (12.0-16.0) g/dl Hct 29.4 L (37.0-47.0) % Plt Count 119 L (160-400) X10*3/uL BMP 11/11/21 11/12/21 09:24 05:30 Sodium 137 140 Potassium 3.3 2.5 L* D Chloride 97 100 Carbon Dioxide 28 31 H BUN 14 8 L Creatinine 0.69 0.58 Calcium 9.1 8.5 D Liver Function 11/11/21 11/12/21 Range/Units 09:24 05:30 Total Bilirubin 3.4 H 2.0 H (0.0-1.0) mg/dL Direct Bilirubin 2.1 H 1.4 H (0.0-0.5) mg/dL AST 145 H 111 H (5-31) U/L ALT 46 H 40 H (0-31) U/L Alkaline Phosphatase 189 H 143 H D (39-117) U/L Albumin 3.7 3.3 L (3.5-5.0) g/dL Head CT revealed moderate diffuse cerebellar atrophy. 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 She was educated about this condition and was advised to stop drinking otherwise in future years she would have increasing physical and psychiatric complications of alcoholism. She should pay attention to her nutrition take some B complex and multivitamins and avoid company that could coax her to drink. At the same time she might require counseling therapy and some medications to control her behavioral symptoms. Common sense measures are advised to avoid falling Procedures Date of Service Date of Service: 11/12/21
[2021-11-12 09:52] LABS: Influenza A PCR NEGATIVE (Negative); Influenza B PCR NEGATIVE (Negative); Resp Syncy Virus RNA Qual PCR NEGATIVE (Negative); SARS COV2 PCR INHOUSE NEGATIVE (Negative)
--- NOTE | 2021-11-12 10:16 | P.DS_ITS ---
DS: Providers Provider Date of Service: 11/12/21 Date of admission: 11/11/21 14:01 Primary care physician: Unknown Physician Consults: 11/11/21 14:27 Consult to Care Team Routine Comment: Reason for consultation: Eval and rec. Consult to Neurology Routine Consulting Provider: [facility] Reason for consultation: Tremors, Abnormal gait, Hx Alcoholism, Risk Wernicke-korsakoff for your sky DS: Diagnosis Discharge Diagnosis (1) Abnormal gait: Status: Acute (2) Hypokalemia: Status: Acute (3) Transaminitis: Status: Acute (4) Epistaxis: Status: Acute (5) Fracture, nasal: Status: Acute (6) Generalized anxiety disorder: Status: Acute (7) Alcoholism: Status: Acute DS: Summary Hospital Course Hospital Course: Admission note HPI ?a 51 years old lady with PMH of alcohol abuse, anxiety disorder among others who presented to the hospital with left nostril bleeding.? The patient reports that she was head and was hit by her dog ? To her face almost 1 week ago.? She blood at that time but then everything stop.? Today she was having a shower when she started to bleed.? It was only the left nostril.? Stop while in the em ergency.? She reports she had hallucination of a pair after leaving the shower this morning associated with increased tremors bilaterally and tongue fasciculation.? Her gait became wide and unsteady? But no reported? falling.? The patient reports she stopped drinking almost 2 weeks ago with no to minimal symptoms in the days after stopping.? She? never had withdrawal symptoms before.? In the emergency source of bleeding controlled.? Blood work showed transaminitis, no previous record to compare. Admitted for further evaluation and treatment. Hospital course Patient was admitted for evaluation of tremor and wide based gait. CT scan was negative for any acute Findings. Evaluated by physical therapy team who recommended short-term rehab. Evaluated by neurologist who recommended B compl ex and multivitamin for treatment of chronic alcoholism findings As a result of cerebellar atrophy.Seen by care team for outpatient resources hoping that she will be completely abscess from alcohol. Epistaxis was controlled with the emergency. CT scan of the face showed nasal bone fracture. No recurrence of the bleeding happened. Received vitamin K for mildly elevated INR. Received phenobarbital protocol by the emergency at time of presentation. Was discontinued during the hospital stay As no symptoms of withdrawal was seen And the patient reported not drinking for more than a week. Plan to go home on B complex, multivitamin with [facility] for home PT. Time Spent with Patient Time attestation: Total time spent providing and/or coordinating discharge services: Discharge coordination time: Greater than 30 minutes Quality: Stroke Does the patient have a stroke diagnosis?: No Physical Exam Vital Signs: Vital Signs: Last Vital Signs Temp 98.8 F 11/12/21 08:00 Pulse 72 11/12/21 08:00 Resp 19 11/12/21 08:00 BP 138/83 11/12/21 08:00 Pulse Ox 95 11/12/21 08:00 BMI result Body Mass Index 27.3 Const: Other: Constitutional : Alert, oriented, mildly stressed out with anxiety Neck : Normal inspection, Supple Face: ?left nostril packing appears to control the left nose bleeding?, right subconjunctival hemorrhage, bilateral infraorbital hematoma Cardiovascular : RRR, S1 S2, no lower extremity edema Respiratory : Good bilateral air entry, no crackles, wheezes or rhonchi Gastrointestinal: soft, lax, Normal bowel sounds, Non tender, tympanic Skin : Warm, Dry Neurological : Alert & oriented x3, No focal deficit, bilateral tremors at rest and intentional mainly, cranial nerves 2-12 within normal, wide based gait, Nqubid-kp-[id number] testing revealed mild ataxia.? Deep tendon reflexes were absent with flexor plantars. DS: Data Data Completed and Pending Labs on day of discharge: Laboratory Results - last 24 hr 11/11/21 11/12/21 11/12/21 09:24 05:30 05:30 WBC 4.9 RBC 2.70 L Hgb 10.3 L Hct 29.4 L MCV 108.9 H MCH 38.1 H MCHC 35.0 RDW 14.0 Plt Count 119 L MPV 10.0 Absolute Nucleated RBC 0.000 Nucleated RBC % (auto) 0.0 Sodium 140 Potassium 2.5 L* D Chloride 100 Carbon Dioxide 31 H Anion Gap 12 BUN 8 L Creatinine 0.58 Estim Creat Clear Calc 99.5 Estimated GFR > 60 Random Glucose 91 Calcium 8.5 D Total Bilirubin 2.0 H Direct Bilirubin 1.4 H AST 111 H ALT 40 H Alkaline Phosphatase 143 H D Total Protein 6.6 Albumin 3.3 L Vitamin B12 537 Folate 5.1 Influenza Type A (PCR) Influenza Type B (PCR) RSV RNA Qual (PCR) SARS-CoV-2 RNA (RT-PCR) 11/12/21 08:53 WBC RBC Hgb Hct MCV MCH MCHC RDW Plt Count MPV Absolute Nucleated RBC Nucleated RBC % (auto) Sodium Potassium Chloride Carbon Dioxide Anion Gap BUN Creatinine Estim Creat Clear Calc Estimated GFR Random Glucose Calcium Total Bilirubin Direct Bilirubin AST ALT Alkaline Phosphatase Total Protein Albumin Vitamin B12 Folate Influenza Type A (PCR) NEGATIVE Influenza Type B (PCR) NEGATIVE RSV RNA Qual (PCR) NEGATIVE SARS-CoV-2 RNA (RT-PCR) NEGATIVE Discharge Plan Discharge Patient Disposition: Home Health Service Discharge Diagnosis: epistaxis Abnormal gait Referrals: Physician,Unknown J [Physician] - 1 Week Discharge Medications: New vitamin B complex [B-Complex] Tablet 1 tab PO DAILY Qty: 30 RF: 3 multivitamin Tablet 1 tab PO DAILY Qty: 30 RF: 0 Continued escitalopram oxalate 20 mg tablet 40 mg PO DAILY Qty: 180 RF: 2 multivitamin Tablet 1 tab PO DAILY RF: 0 acetaminophen 325 mg Tablet 650 mg PO Q6H PRN (Reason: Pain) RF: 0 lisinopril-hydrochlorothiazide 20-12.5 mg tablet 1 tab PO DAILY Qty: 90 RF: 1 Discharge Orders: Discharge Order (Routine); Ordered 11/12/21 Ordered By: Carmen Dupree Diet: advance to usual diet Activity on Discharge: As tolerated Stand Alone Forms: Patient Portal Discharge page Care Plan Goals: Read below Health Concerns: Read below Plan of Treatment: Read below Assessment: you were admitted to the hospital for evaluation of abnormal gait and nasal bleeding. Nasal bleeding was controlled in the emergency with no recurrence. Images showed nasal bone fracture you were evaluated by Neurology and physical therapy for abnormal gait. Likely a result of long-term alcoholism. We advise you complete absence from alcohol. To use multivitamin and B complex to help improve her symptoms. You will need physical therapy to improve your gait.
[2021-11-12 11:52] VITALS: BP 121/73; PULSE 77; RESP 19; TEMP 36.7; O2SAT 97
[2021-11-12] MEDS: Thiamine HCL 100 MG in 0.9 % Sodium Chloride 100 ML 202 MG IV (11:54)
[2021-11-12 11:57] LABS: Anion Gap 10 (12-20); Blood Urea Nitrogen 7 mg/dL (9-16); Calcium 8.3 mg/dL (8.4-10.2); Carbon Dioxide 31 mmol/L (22-29); Chloride 102 mmol/L (96-108); Creatinine Clr Calc Pharmacy 106.9; Estimated Glomerular Filt Rate > 60; Glucose Random 87 mg/dL (60-115); Potassium 3.6 mmol/L (3.3-5.1); Sodium 138 mmol/L (135-145)
--- NOTE | 2021-11-12 14:13 | P.F2F_ITS ---
Service Date Service Date: 11/12/21 Encounter Date of encounter: 11/12/21 Reasons for Services Signs and symptoms assessed: Abnormal gait Reason for occupational therapy: home safety and mobility and therapeutic exercises Homebound: Leaving the home is medically contraindicated at this time without the asist of a device and/or another person due th the listed conditions above and below. Certification: Based on the above findings, I certify that this patient is confined to the home and needs intermittent residential care, physical therapy and/or speech therapy, or continues to need occupational therapy. The patient is under my care, and I have initiated the establishment of the plan of care. The patient will be followed by a physician who will periodically review the plan of care.
--- NOTE | 2021-11-12 14:34 | MHC.RECOVRN ---
Met with pt in 353 to discuss substance use and available supports. Pt currently drinking alcohol, wine and vodka on the rocks. Denies other substances. Pt reports alcohol use since about 2011 with a 6 week period of abstinence in 2017. Pt reports drinking socially prior to 2011, however, pts father which resulted in increase alcohol consumption. In 2017, pt was able to abstain due to an exercise competition. Pt reports in recent years alcohol use has increased and is unable to quantify how much. Pt states I get home from work and I don't even have my hands empty and I start pouring. 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 Pt currently lives with , children, and pts mother. Pt states They call it my corner in the kitchen. 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 When I get to 1/4 of a glass I pour more. Pt has not received treatment in the past for AUD. Pt provided with recovery resources and information regarding medications for alcohol use disorder. At this time, pt would like to connect to a Director Index. Pt provided with t/w contact information if pt would like to discuss other supports further. Discussed with Regine Beckman APRN. Referral placed for [facility]. T/w available as needed.
[2021-11-12 15:18] VITALS: BP 171/83; PULSE 66; RESP 16; TEMP 36.4; O2SAT 99
--- NOTE | 2021-11-12 16:06 | MHC.CM.PN ---
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 D/C PLAN: HOME NO SERVICES, FAMILY FOR [place]
[2021-11-20 12:02] LABS: Vitamin B1 >1200 nmol/L (8-30)
== END 2021-11-12 05:05 | disposition home health service (06) | DRG 42 ==
LOC: HO.ED 14:01 → HO.EDOVER 14:48 → HO.S3 15:11
PROVIDERS: Admitting Provider Student in an Organized Health Care Education/Training Program; Emergency Provider Emergency Medicine; PCP Internal Medicine; Visit Provider Student in an Organized Health Care Education/Training Program
DX: G31.89 Other specified degenerative diseases of nervous system (principal); E87.6 Hypokalemia; R04.0 Epistaxis; F10.20 Alcohol dependence, uncomplicated; R79.1 Abnormal coagulation profile; F41.1 Generalized anxiety disorder; Y90.0 Blood alcohol level of less than 20 mg/100 ml; S02.2XXA Fracture of nasal bones, initial encounter for closed fracture; W54.1XXA Struck by dog, initial encounter; Z20.822 Contact with and (suspected) exposure to COVID-19; Z79.899 Other long term (current) drug therapy
CPT/HCPCS: 0241U; 36415; 70450; 70486; 80048; 80076; 82077; 82607; 82746; 83690; 84425; 85025; 85027; 85610; 85730; 97162; 99284; J2560; J3411

== ENCOUNTER → 2022-01-26 11:57 | Outpatient (BNVA) | payer OTHER, SELFPAY | PROVIDERS: PCP Internal Medicine; Visit Provider Nurse Practitioner | DX: Z12.11 Encounter for screening for malignant neoplasm of colon (principal) | CPT/HCPCS: 99202 ==

== ENCOUNTER 2022-04-23 07:55 | Outpatient (REF) | payer SELFPAY ==
[2022-04-23 11:42] LABS: MANUAL DIFF FLAG NO
[2022-04-23 12:05] LABS: Basophils Percent Auto 0.5 % (0-2); Eosinophils Absolute Auto 0.2 X10*3/uL (0.0-0.4); Eosinophils Percent Auto 3.4 % (0-4); Hematocrit 36.9 % (37.0-47.0); Hemoglobin 12.5 g/dl (12.0-16.0); Imm Gran Abs Auto 0.01 X10*3/uL (0.00-0.03); Imm Gran Pct Auto 0.2 % (0.0-0.4); Lymphocytes Absolute Auto 1.8 X10*3/uL (1.2-4.9); Lymphocytes Percent Auto 40.1 % (20-40); Mean Corpuscular HGB Conc 33.9 g/dl (31.0-35.0); Mean Corpuscular Hemoglobin 29.3 pg (27.0-33.0); Mean Corpuscular Volume 86.4 fL (80.0-98.0); Mean Platelet Volume 9.7 fL (9.4-12.3); Monocytes Absolute Auto 0.5 X10*3/uL (0.1-1.2); Monocytes Percent Auto 11.5 % (2-11); Neutrophils Percent Auto 44.3 % (45-73); Platelet Count 232 X10*3/uL (160-400); Red Blood Count 4.27 X10*6/uL (4.20-5.50); Red Cell Distribution Width 13.5 % (11.0-16.0); White Blood Count 4.4 X10*3/uL (4.8-10.8)
[2022-04-23 12:21] LABS: Alanine Aminotransferase 27 U/L (0-31); Albumin Level 4.1 g/dL (3.5-5.0); Alkaline Phosphatase 91 U/L (39-117); Anion Gap 13 (12-20); Aspartate Amino Transferase 31 U/L (5-31); Bilirubin Total 0.3 mg/dL (0.0-1.0); Blood Urea Nitrogen 12 mg/dL (9-16); Calcium 9.5 mg/dL (8.4-10.2); Carbon Dioxide 26 mmol/L (22-29); Chloride 106 mmol/L (96-108); Cholesterol 187 mg/dL; Estimated Glomerular Filt Rate > 60; Glucose Fasting 95 mg/dL (60-99); HDL Cholesterol 51 mg/dL; LDL Cholesterol Calculated 120 mg/dl; Potassium 4.1 mmol/L (3.3-5.1); Rheumatoid Factor 28.5 IU/mL (<15.0); Sodium 141 mmol/L (135-145); Total Protein 7.7 g/dL (6.5-8.0); Triglycerides 80 mg/dL
[2022-04-23 12:32] LABS: TSH reflex Free T4 2.35 uIU/mL (0.32-4.0)
[2022-04-23 12:44] LABS: Folate 18.7 ng/mL (> or = 4.0); Vitamin B12 420 pg/mL (200-900)
[2022-04-23 13:18] LABS: Erythrocyte Sedimentation Rate 23 MM/HR (0-20)
[2022-04-25 05:21] LABS: Lyme Abs Screen <0.90 index
== END 2022-04-23 07:56 | disposition home or self-care (01) ==
LOC: HO.HMGCLDS 07:55
PROVIDERS: PCP Internal Medicine; Visit Provider Internal Medicine
DX: I10 Essential (primary) hypertension (principal); M25.50 Pain in unspecified joint; F10.21 Alcohol dependence, in remission; N95.9 Unspecified menopausal and perimenopausal disorder
CPT/HCPCS: 36415; 80053; 80061; 82306; 82550; 82607; 82746; 84443; 85025; 85652; 86140; 86431; 86617; 86618

== ENCOUNTER 2023-03-23 07:44 | Outpatient (REF) | payer OTHER, SELFPAY ==
[2023-03-23 11:31] LABS: MANUAL DIFF FLAG NO
[2023-03-23 11:39] LABS: Eosinophils Absolute Auto 0.1 X10*3/uL (0.0-0.4); Eosinophils Percent Auto 2.5 % (0-4); Hematocrit 39.3 % (37.0-47.0); Hemoglobin 13.1 g/dl (12.0-16.0); Lymphocytes Absolute Auto 1.9 X10*3/uL (1.2-4.9); Lymphocytes Percent Auto 47.2 % (20-40); Mean Corpuscular HGB Conc 33.3 g/dl (31.0-35.0); Mean Corpuscular Hemoglobin 29.1 pg (27.0-33.0); Mean Corpuscular Volume 87.3 fL (80.0-98.0); Monocytes Absolute Auto 0.4 X10*3/uL (0.1-1.2); Monocytes Percent Auto 9.3 % (2-11); Neutrophils Absolute Auto 1.6 x10*3/uL (2.0-8.3); Platelet Count 259 X10*3/uL (160-400); Red Cell Distribution Width 13.6 % (11.0-16.0)
[2023-03-23 12:28] LABS: Alanine Aminotransferase 29 U/L (0-31); Albumin Level 4.2 g/dL (3.5-5.0); Alkaline Phosphatase 121 U/L (39-117); Anion Gap 11 (12-20); Aspartate Amino Transferase 36 U/L (5-31); Bilirubin Total 0.6 mg/dL (0.0-1.0); Blood Urea Nitrogen 14 mg/dL (9-16); Calcium 9.3 mg/dL (8.4-10.2); Carbon Dioxide 29 mmol/L (22-29); Chloride 107 mmol/L (96-108); Cholesterol 163 mg/dL; Estimated Glomerular Filt Rate > 60; Glucose Fasting 84 mg/dL (60-99); HDL Cholesterol 44 mg/dL; LDL Cholesterol Calculated 107 mg/dl; Potassium 4.2 mmol/L (3.3-5.1); Sodium 143 mmol/L (135-145); Total Protein 7.3 g/dL (6.5-8.0); Triglycerides 61 mg/dL; Vitamin D 25-OH Total 37.1 ng/mL (>30)
== END 2023-03-23 07:45 | disposition home or self-care (01) ==
LOC: HO.HMGCLDS 07:44
PROVIDERS: PCP Internal Medicine; Visit Provider Internal Medicine
DX: Z00.01 Encounter for general adult medical examination with abnormal findings (principal); E66.9 Obesity, unspecified; F10.21 Alcohol dependence, in remission; M25.50 Pain in unspecified joint
CPT/HCPCS: 36415; 80053; 80061; 82306; 85025

== ENCOUNTER → 2023-03-31 07:33 | Outpatient (BNVA) | payer OTHER, SELFPAY | PROVIDERS: PCP Internal Medicine; Visit Provider Student in an Organized Health Care Education/Training Program | DX: R76.8 Other specified abnormal immunological findings in serum (principal); M51.36 Other intervertebral disc degeneration, lumbar region | CPT/HCPCS: 99202 ==

== ENCOUNTER 2023-07-15 07:00 | Outpatient (RCR) | payer OTHER, SELFPAY ==
--- NOTE | 2023-06-03 09:38 | MHC.PT.EP ---
[facility] [place] Office [place] Office [place] Office [address] Kaleb Busch [address] [phone] F: [phone] F: [phone] F: [phone] F: [phone] Physical Therapy Plan of Care Date of Evaluation: Date of Surgery: Diagnosis: This is a 52 yo female presenting to skilled PT with a script for DDD, lumbar. Assessment: This is a 52 yo female presenting to skilled PT with a script for DDD, lumbar. Her pain has been ongoing for about a year now, no injury noted. Patient reporting that she was sent to rheumatology because her numbers weren't great and referred to PT as a next step. She has not had any treatment from their department yet. Her pain is located centralized at low back, achy in nature. Her pain increases with sleeping, sitting > an hr, transfers off the floor. Her pain is starting to be more constant. She has tried massage therapy, lotions for pain/CBD and over the counter pain relief medications. Denies x-rays and youth career specialist at this time but has orders for an x-ray. Denies radiating symptoms, numbness or tingling. She has been going to the gym now for the past 5 months (4 days a week, takes classes), has lost weight and changed her diet which has helped her overall pain relief in shoulders as well as general well-being. Assessment reveals pain that ranges around a 4-6/10. Patient demos decreased lumbar ROM and joint mobility, strength of core with significant diastasis recti noted and decreased postural awareness and tolerance of sitting, laying or standing prolonged periods of time. Based on functional limitations, impaired QOL and pain tolerance patient is a good candidate for skilled PT 2x/wk for 4wks. Frequency and Duration: The patient will be seen 2x/wk for 4 wks Short Term Goals: (in 2 wks) I in HEP Demo proper technique of core stab and nuetral pelvic alignment Demo proper squat techniques without pain and proper core activation [employer] Goals: (in 4wks) Demo at least 1 grade MMT improvement of BLE with adduction and extension Demo WFL ROM of lumbar and BLE without pain Improve pain to no more than 2/10 at the worst improve diastasis recti width by 1 finger Treatment Plan: Modalities to reduce pain, spasms and effusion. Manual therapy to restore motion and function. Therapeutic exercise to improve strength and flexibility. Neuromuscular re-education for posture and balance. Therapeutic activities to return to functional activities of daily living. Electronically signed by: Clotilde Blankenship PT Please sign and return to therapist. Thank you for your referral.
--- NOTE | 2023-07-27 10:08 | MHC.PT.DC ---
[facility] [place] Office [place] Office [place] Office [address] Kaleb Busch [address] [phone] F: [phone] F: [phone] F: [phone] F: [phone] Physical Therapy Discharge Report Diagnosis: This is a 52 yo female presenting to skilled PT with a script for DDD, lumbar. Date of Surgery: Date of Evaluation: 06/03/23 Date of Discharge: 07/27/23 Treatments to Date: 5 Cancellations to Date: 0 No Shows to Date: 0 Discharge Status: Achieved Goals Independent with HEP Discharge Summary: Patient is very active, she was educated on HEP that would benefit her in the future for diastasis recti and SIJ. I also educated her on additional referral options and pain management. She is I in her program, is active at the gym and is ready for DC from skilled PT. She demos 5/5 hip strength, 1 finger width lower abdomen and 2 upper diastasis (educated on how to self assess at home) and WNL ROM. DC to HEP. Electronically signed by: Clotilde Blankenship PT Please sign and return to therapist. Thank you for your referral.
== END 2023-07-27 10:09 | disposition home or self-care (01) ==
LOC: HO.PTCHIC 07:00
PROVIDERS: PCP Internal Medicine; Visit Provider Student in an Organized Health Care Education/Training Program
DX: M51.36 Other intervertebral disc degeneration, lumbar region (principal)
CPT/HCPCS: 97014; 97110; 97140; 97162

== ENCOUNTER 2023-08-05 07:53 | Day surgery (SDC) | payer OTHER, SELFPAY ==
--- NOTE | 2023-08-04 12:05 | P.CONAN_ITS ---
HPI - Anesthesia Eval Consult details Narrative: 52yo F for Colonoscopy PMFSH Active Problems Active Problems: All Active Problems (Updated 03/31/23 @ 08:15 by Tea Amezcua MD) Degenerative disc disease, lumbar (Acute) Overweight (Acute) Elevated rheumatoid factor (Acute) Lumbago (Acute) History of alcoholism (Acute) Polyarthralgia (Acute) Past Medical History Medical History Overweight Elevated rheumatoid factor Lumbago History of alcoholism Polyarthralgia Hx of fracture of nose Generalized anxiety disorder Poison lucy dermatitis Hypertension Family History Family History Father No problems noted. 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 Cognitive needs: No Hearing needs: No Vision needs: No Meds Allergies Allergy/AdvReac Type Severity Reaction Status Date / Time No Known Allergies Allergy Verified 08/19/23 07:50 Home Medications Medication Instructions Recorded Confirmed Last Taken Type acetaminophen 325 mg tablet 650 mg PO Q6H PRN Pain 11/11/21 08/05/23 11/10/21 History Exam Exam Date and Time: August 04, 2023 1205 Pertinent Lab Results Pertinent Lab Results: Laboratory Tests 03/23/23 07:50 WBC 4.0 L Hgb 13.1 Hct 39.3 Plt Count 259 Sodium 143 Potassium 4.2 Chloride 107 Carbon Dioxide 29 BUN 14 Creatinine 0.72 Assessment and Plan Assessment Anesthesia Assessment: Chart Reviewed
[2023-08-05 08:09] VITALS: BMI 28.3
--- NOTE | 2023-08-05 08:21 | PC.NURSE ---
patient states that she has not had a menstrual cycle for over one year.
[2023-08-05] MEDS: Lactated Ringers 1,000 ML 100 ML IVCONT (08:26)
--- NOTE | 2023-08-05 08:31 | MHC.SHP ---
Pre-Procedural Eval Section A Date of Service: 08/05/23 Section B Chief Complaint: Screening Relevant Family History (Specify if Yes): No Relevant Social History: None (ex drinker) Present Medications: see Short Stay Collaborative assessment Medical History: Significant History (Alcoholism - quit ETOH about 3 mos ago. Hypertension Generalized anxiety disorder Periorbital swelling History of hypokalemia Epistaxis) History of Previous Operations: Relevant previous surgery/procedure and date(s) (Hx of section) Allergies: Allergies Allergy/AdvReac Type Severity Reaction Status Date / Time No Known Allergies Allergy Verified 12/14/22 08:27 Review of Systems Sugical H&P ROS: Negative: Constitution, Cardiovascular, Respiratory, Neurological, Psychiatric, Hem-Onc, Allergic/Immunologic, Gastrointestinal, Genitourinary, Musculoskeletal, Integumentary, Endocrine and Eyes/Ears/Nose/Throat Exam Surgical H&P Exam: Normal: HEENT, Normal: Heart, Normal: Lungs, Normal: Extremities, Normal: Abdomen, Normal: Skin and Normal: Neurological Plan Diagnosis/Plan: Unchanged I have reviewed the history and physical and performed a pertinent physical examination on my patient. No changes have occurred unless specified. Time Spent With Patient Time: Total time managing care of this patient today ____ minutes.
[2023-08-05 08:35] VITALS: BP 138/82; PULSE 64; RESP 18; TEMP 36.6; O2SAT 99
--- NOTE | 2023-08-05 08:35 | HO.ANESPROP2 ---
[facility] Active Problems Active Problems: All Active Problems (Updated 03/31/23 @ 08:15 by Tea Amezcua MD) Degenerative disc disease, lumbar (Acute) Overweight (Acute) Elevated rheumatoid factor (Acute) Lumbago (Acute) History of alcoholism (Acute) Polyarthralgia (Acute) Past Medical History Medical History Overweight Elevated rheumatoid factor Lumbago History of alcoholism Polyarthralgia Hx of fracture of nose Generalized anxiety disorder Poison lucy dermatitis Hypertension Functional capacity: independent ambulation Family History Family History Father No problems noted. Mother History of COPD Family history of problems with anesthesia: No Surgical History Surgical History Hx of section History of Problems with Anesthesia: No Social History Social History Household Members: Spouse and Children Housing: House Do you presently have visiting nurse or other home services: No Alcohol intake: former Year quit: 2020 Patient Tobacco Use Status: Never used Tobacco Years Smoked: 10 yrs e-Cigarette/Vaping Use: Never Used Are you DNR?: No Advance Directives: No Advance Directives Information Provided: Yes Advance Directives Date on File: 11/11/21 Nutrition Risks: No Nutritional Risk FDLMP: no menstrual cycle service: No Current occupational status: employed 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 Cognitive needs: No Hearing needs: No Vision needs: No Meds Allergies Allergy/AdvReac Type Severity Reaction Status Date / Time No Known Allergies Allergy Verified 08/05/23 08:36 Active Medications: Current Medications Lactated Ringer's (Lr) 1,000 mls @ 100 mls/hr IVCONT .Q10H MARCELLO Last Admin: 08/05/23 08:26 Dose: 100 mls/hr Home Medications Medication Instructions Recorded Confirmed Last Taken Type acetaminophen 325 mg tablet 650 mg PO Q6H PRN Pain 11/11/21 03/31/23 11/10/21 History Exam Exam Date and Time: August 05, 2023 0835 Height,Weight and Vital Signs: Height 5 ft 1 in Weight 68.039 kg Airway Mallampati Class: II TM Dist: >3cm Neck ROM: Full Denture: Lower Heart: RRR Lungs: CTA Assessment and Plan Final Anesthetic Review Family History of Problems with Anesthesia: No History of Problems with Anesthesia: No NPO: Yes ASA Class: II Final Preanesthetic Review: Meds/Allgs Chart Reviewed, Consent Obtained/Reviewed and Anes Risks/Benef Reviewed Patient Risk: Low Procedure Risk: Low Anesthetic Plan Anesthetic Plan: MAC: Disposition: Standard PACU
--- NOTE | 2023-08-05 09:20 | P.OP_ITS ---
Operative Note Operative Note Date of Service: 08/05/23 Narrative: Operative Information Procedure Description: Colonoscopy Indication: colon screen Anesthesia: MAC COLONOSCOPY Instrument: Olympus variable stiffness pediatric scope 190L Colonoscopy Monitoring: Vital signs and clinical assessment, continuous EKG monitoring, Pulse oximetry, Carbon Dioxide monitoring and blood pressure monitoring were done throughout the procedure. Colon withdrawal time was 10 minutes. Procedure: The patient was placed in the left lateral decubitis position and pre-procedure medications were administered. After a digital rectal examination of the ano-rectum, the video colonoscope was inserted into the rectum and advanced through the colon to the cecum/TI. The colonoscope was slowly withdrawn in a retrograde panoramic fashion and the colon mucosa was carefully examined including a retroflexed view of the rectum. Findings and interventions are described below. Procedure Difficulty: easy Findings: Terminal Ileum-normal Right sided retorflexion- normal Cecum:normal Ascending Colon: normal Transverse Colon -normal Descending Colon:normal Sigmoid Colon: normal Rectum: Retroflexion with small internal hemorrhoids, grade I Anorectum - normal Colon preparation: [place] Bowel Preparation Scale Right colon; 1-2 Transverse colon: 2 Left colon; 1-2 (0 = Unprepared colon segment with mucosa not seen due to solid stool that cannot be cleared. 1 = Portion of mucosa of the colon segment seen, but other areas of the colon segment not well seen due to staining, residual stool and/or opaque liquid. 2 = Minor amount of residual staining, small fragments of stool and/or opaque liquid, but mucosa of colon segment seen well. 3 = Entire mucosa of colon segment seen well with no residual staining, small fragments of stool or opaque liquid) Impression and Post Procedure Diagnosis: internal hemorrhoids Plan: High fiber diet leaflet Avoid straining at stool, epsom salts and sitz bath, anusol supps or cream Repeat Colonoscopy in 1-2 years due ti fair prep or earlier if clinically indicated Above findings were reviewed with the patient and relevant handouts were provided if indicated.
[2023-08-05 10:07] VITALS: BP 95/56; PULSE 65; RESP 16; TEMP 36.4; O2SAT 97
[2023-08-05 10:21] VITALS: BP 119/69; PULSE 72; RESP 16; O2SAT 99
--- NOTE | 2023-08-05 11:18 | HO.POSTANES ---
Post Anesthesia Evaluation Post Anesthesia Evaluation Date of Service: 08/05/23 Vital Signs: Vital Signs Temp Pulse Resp BP Pulse Ox O2 Del Method 08/05/23 10:21 72 16 119/69 99 Room Air 08/05/23 10:07 97.5 F 65 16 95/56 L 97 Room Air 08/05/23 08:35 97.8 F 64 18 138/82 99 Room Air Anesthesia: Monitored Mental Status: Awake Pain Control: Satisfactory Nausea/Vomiting: None Hydration: Adequate Anesthesia-Related Issues: No Anes. Related Issues
== END 2023-08-05 10:44 | disposition home or self-care (01) ==
PROVIDERS: PCP Internal Medicine; Visit Provider Internal Medicine Gastroenterology
PROC: 0DJD8ZZ Inspection of Lower Intestinal Tract, Via Natural or Artificial Opening Endoscopic (ICD-10-PCS; CPT 45378; principal; 2023-08-05 09:20)
DX: Z12.11 Encounter for screening for malignant neoplasm of colon (principal); K64.0 First degree hemorrhoids; I10 Essential (primary) hypertension; F41.8 Other specified anxiety disorders; E87.6 Hypokalemia; F10.21 Alcohol dependence, in remission
CPT/HCPCS: 45378

== ENCOUNTER → 2023-08-05 07:53 | Outpatient (BNV) | payer OTHER, SELFPAY | PROVIDERS: PCP Internal Medicine; Visit Provider Internal Medicine Gastroenterology | DX: Z12.11 Encounter for screening for malignant neoplasm of colon (principal); K64.0 First degree hemorrhoids | CPT/HCPCS: 45378 ==

== ENCOUNTER 2023-08-11 06:59 | Outpatient (REF) | payer OTHER, SELFPAY ==
[2023-08-11 11:19] LABS: MANUAL DIFF FLAG NO
[2023-08-11 11:25] LABS: Appearance Urine Clear; Color Urine Yellow; Glucose Urine UA Negative (Negative); Leukocyte Esterase Urine Small (1+) (Negative); Nitrite Urine Negative (Negative); PH 5.5 (5.0-9.0); UMIC TRIGGER UA YES; Urine Blood Negative (Negative); Urine Ketones Negative (Negative); Urine Protein Negative (Neg-Trace)
[2023-08-11 11:29] LABS: Basophils Percent Auto 0.7 % (0-2); Eosinophils Absolute Auto 0.1 X10*3/uL (0.0-0.4); Eosinophils Percent Auto 2.9 % (0-4); Hematocrit 38.6 % (37.0-47.0); Hemoglobin 13.1 g/dl (12.0-16.0); Lymphocytes Absolute Auto 2.2 X10*3/uL (1.2-4.9); Mean Corpuscular HGB Conc 33.9 g/dl (31.0-35.0); Mean Corpuscular Hemoglobin 29.4 pg (27.0-33.0); Mean Corpuscular Volume 86.7 fL (80.0-98.0); Mean Platelet Volume 9.5 fL (9.4-12.3); Monocytes Absolute Auto 0.4 X10*3/uL (0.1-1.2); Monocytes Percent Auto 8.7 % (2-11); Neutrophils Absolute Auto 1.7 x10*3/uL (2.0-8.3); Neutrophils Percent Auto 38.7 % (45-73); Platelet Count 259 X10*3/uL (160-400); Red Blood Count 4.45 X10*6/uL (4.20-5.50); White Blood Count 4.5 X10*3/uL (4.8-10.8)
[2023-08-11 11:31] LABS: Bacteria Urine 1+ (None Seen); Hyaline Casts Urine 0-2 /LPF (0-2); RBC Urine 0-2 /HPF (0-2); Squamous Epithelial Cell Urine 0-2 /HPF (0-2)
[2023-08-11 12:06] LABS: Rheumatoid Factor 14.3 IU/mL (<15.0)
[2023-08-11 12:08] LABS: Alanine Aminotransferase 26 U/L (0-31); Albumin Level 4.2 g/dL (3.5-5.0); Alkaline Phosphatase 83 U/L (39-117); Anion Gap 16 (12-20); Aspartate Amino Transferase 34 U/L (5-31); Bilirubin Total 0.3 mg/dL (0.0-1.0); Blood Urea Nitrogen 18 mg/dL (9-16); C Reactive Protein 0.22 mg/dL (< or = 0.50); Calcium 9.8 mg/dL (8.4-10.2); Carbon Dioxide 24 mmol/L (22-29); Chloride 107 mmol/L (96-108); Estimated Glomerular Filt Rate > 60; Glucose Random 83 mg/dL (60-115); Potassium 3.6 mmol/L (3.3-5.1); Sodium 143 mmol/L (135-145); Total Protein 7.5 g/dL (6.5-8.0); Uric Acid 4.4 mg/dL (2.4-5.7)
[2023-08-11 12:13] LABS: Erythrocyte Sedimentation Rate 9 MM/HR (0-20)
[2023-08-11 12:14] LABS: Creatinine Urine 97.62 mg/dL; Total Protein Urine Random < 7 mg/dL (<12)
[2023-08-12 03:27] LABS: HBS Num1 321.07 mIU/mL (0-7.99); HBc Num1 0.21 S/CO (0.00-0.79); HBsAGNum1 0.44 S/CO (0.00-0.99); Hepatitis A Antibody IgM 0.18 Index (0-0.79); Hepatitis B Core Antibody Nonreactive (Nonreactive); Hepatitis B Surface Antigen Negative (Negative); ~HepC Num1 0.09 S/CO (0.00-0.79); ~Hepatitis A Antibody IgM Nonreactive (Nonreactive); ~Hepatitis B Surface Antibody REACTIVE (Nonreactive); ~Hepatitis C Antibody Nonreactive (Nonreactive)
[2023-08-12 11:58] LABS: Complement C3 110 mg/dL (83-193)
[2023-08-15 12:14] LABS: Prot Elec - Albumin 4.2 g/dL (3.8-4.8); Prot Elec - Alpha1 0.3 g/dL (0.2-0.3); Prot Elec - Alpha2 0.6 g/dL (0.5-0.9); Prot Elec - Beta 1 0.5 g/dL (0.4-0.6); Prot Elec - Beta 2 0.5 g/dL (0.2-0.5); Prot Elec - Gamma 1.1 g/dL (0.8-1.7); Prot Elec - Total Protein 7.2 g/dL (6.1-8.1)
[2023-08-15 16:44] LABS: Cyclic Citrullinated Peptide <16 UNITS
[2023-08-15 21:18] LABS: Anti DNA DS Antibody 3 IU/mL; Antibody to SS-A Antigen <1.0 NEG AI (<1.0 NEG); Antibody to SS-B Antigen <1.0 NEG AI (<1.0 NEG); SM/Ribonucleoprotein Ab <1.0 NEG AI (<1.0 NEG); Smith Protein <1.0 NEG AI (<1.0 NEG)
[2023-08-16 13:18] LABS: IgA 234 mg/dL (47-310); IgG 1425 mg/dL (600-1640); IgM 59 mg/dL (50-300)
[2023-08-16 17:18] LABS: Anti Nuclear Antibody Pattern Nuclear, Nucleolar; Anti Nuclear Antibody Screen POSITIVE (NEGATIVE)
== END 2023-08-11 07:00 | disposition home or self-care (01) ==
LOC: HO.HMGCLDS 06:59
PROVIDERS: PCP Internal Medicine; Visit Provider Student in an Organized Health Care Education/Training Program
DX: M06.9 Rheumatoid arthritis, unspecified (principal); M25.511 Pain in right shoulder; M25.512 Pain in left shoulder; M32.9 Systemic lupus erythematosus, unspecified; Z11.59 Encounter for screening for other viral diseases
CPT/HCPCS: 36415; 80053; 81001; 82570; 82784; 84156; 84165; 84550; 85025; 85652; 86038; 86039; 86140; 86160; 86200; 86225; 86235; 86334; 86431; 86704; 86706; 86709; 86803; 87340

== ENCOUNTER 2023-08-19 07:44 | Outpatient (AMB) | payer OTHER, SELFPAY ==
--- NOTE | 2023-08-19 07:46 | MHC.OFFVIS ---
Intake Vital Signs 08/19/23 07:50 Height 5 ft 1 in Weight 126 lb 12.253 oz BMI 23.9 BP 110/82 Blood Pressure Location Lt brachial Position Sitting Pulse 68 Pulse Source Pulse Oximeter Pulse Oximetry (%) 98 Oxygen Delivery Method Room Air Intake Visit Reasons: +RF Intake Note: Pt seen today for follow up and to discuss test results. PT ordered at last visit; she attended a couple sessions. 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 She was not able to do the x-rays. She attended a couple of physical therapy sessions. She continues to get lower back pain especially after sitting down for some time. Gets intermittent shoulder pain. Continues to have pain in both feet. Planning to see a physician general practice. She does CrossFit 3 times a week. Initial history: This is a 52-year-old female who presents for evaluation of multiple joint pain and positive rheumatoid factor. The condition started about a year ago the patient noticing episodes of 3-4 days to 1 week long episode of bilateral shoulder pain and significant stiffness that lasts almost all day. She denied any injuries to the shoulder. Then self resolves for a few weeks then comes back lasting 3-4 days to 1 week. She does not recall any injury or trauma to the shoulder. She also states that she has lower back pain and stiffness especially when getting up after sitting down for a while. Low back pain does not radiate to her lower extremities. She also states that feels that her feet are turning and are painful. Currently she does not have any shoulder pain. She denies any skin rashes. No history of DVT/PE. No history of miscarriages or abortions. She is unaware of any family history of autoimmune rheumatic disease [facility] Medical History Overweight Elevated rheumatoid factor Lumbago History of alcoholism Polyarthralgia Hx of fracture of nose Generalized anxiety disorder Poison lucy dermatitis Hypertension Surgical History Hx of section Family History Father No problems noted. 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 Cognitive needs: No Hearing needs: No Vision needs: No Review of Systems Musc Reports back pain, Reports arthralgias and Reports stiffness Physical Exam Vital Signs: Last Vital Signs Pulse 68 08/19/23 07:50 BP 110/82 08/19/23 07:50 Pulse Ox 98 08/19/23 07:50 Oxygen Delivery Method Room Air 08/19/23 07:50 BMI result Body Mass Index 23.9 Const General: cooperative, healthy appearing and comfortable Nutritional Appearance: average body habitus Limitations: no limitations HEENT Head: Yes normocephalic and Yes atraumatic Resp Effort & Inspection: normal respiratory effort and able to speak in complete sentences Extrem Other: Normal active range of motion of both shoulders, minimal pain with passive full abduction Negative rotator cuff provocative maneuvers bilaterally today osteoarthritic changes of both hands with prominent Sumaya's and Heberden's nodes, minimally tender to palpation Negative MCP squeeze test bilaterally Normal nailfold capillaroscopy Negative straight leg raise test bilaterally Negative Miriam test bilaterally Bilateral feet bunions slightly tender to palpation MTPs are nontender to palpation, negative MTP squeeze test bilaterally Assessment & Plan Assessment & Plan (1) Elevated rheumatoid factor: Code(s): R76.8 - Other specified abnormal immunological findings in serum Plan: This is a 53-year-old female who presents for evaluation of a positive rheumatoid factor. Upon evaluation her clinical picture is rather consistent with generalized osteoarthritis. Repeat rheumatoid factor was negative as well as comprehensive serology for underlying autoimmune rheumatic disease. Reassured patient about the condition Follow-up as needed (2) Degenerative disc disease, lumbar: Code(s): M51.36 - Other intervertebral disc degeneration, lumbar region Plan: No radiculopathy symptoms currently. Symptoms stable. Advised patient to follow-up with her PCP or pain management if her symptoms progress (3) GAUTAM positive: Code(s): R76.8 - Other specified abnormal immunological findings in serum Plan: Positive GAUTAM 1-80 nucleolar pattern. With negative sub serologies. No symptoms of Raynaud's with normal nailfold capillaroscopy. Explained to patient that 20% of the population can have a positive GAUTAM with no underlying autoimmune rheumatic disease. (4) Bunion: Code(s): M21.619 - Bunion of unspecified foot Plan: Follow-up with Podiatry Plan I spent 28 minutes reviewing patient's chart, evaluating patient, counseling patient and documenting in the chart Coding Level of Care Code Est Pt Level 4 (16367) Diagnoses Elevated rheumatoid factor R76.8 Degenerative disc disease, lumbar M51.36 GAUTAM positive R76.8 Bunion M21.619
[2023-08-19 07:50] VITALS: BP 110/82; PULSE 68; O2SAT 98; BMI 23.9
== END 2023-08-19 08:07 | disposition home or self-care (01) ==
PROVIDERS: PCP Internal Medicine; Visit Provider Student in an Organized Health Care Education/Training Program
DX: R76.8 Other specified abnormal immunological findings in serum (principal); M51.36 Other intervertebral disc degeneration, lumbar region; M21.619 Bunion of unspecified foot
CPT/HCPCS: 99214

== ENCOUNTER → 2023-08-19 07:44 | Outpatient (BNVA) | payer OTHER, SELFPAY | PROVIDERS: PCP Internal Medicine; Visit Provider Student in an Organized Health Care Education/Training Program | DX: R76.8 Other specified abnormal immunological findings in serum (principal); M51.36 Other intervertebral disc degeneration, lumbar region; M21.619 Bunion of unspecified foot | CPT/HCPCS: 99212 ==

== ENCOUNTER 2023-11-21 11:49 | Outpatient (AMB) | payer OTHER, SELFPAY ==
--- NOTE | 2023-11-21 12:02 | MHC.OFFVIS ---
Intake Vital Signs 11/21/23 12:03 Height 5 ft 1 in Weight 125 lb BMI 23.6 BP 142/80 H Blood Pressure Location Lt brachial Position Sitting Pulse 66 Intake Visit Reasons: [place] f/u Intake Note: Patient follow up for Colonoscopy results. Patient denies any GI issues. 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 VITAL SIGNS:see workflow HEENT: Nonicteric sclerae, PERRLA, EOMI. Oropharynx clear. Moist mucous membranes. Conjunctivae appear well perfused. No thyroid mass. CHEST: Chest wall is nontender. HEART: Regular rate and rhythm without murmurs. LUNGS: Clear to auscultation bilaterally. ABDOMEN: Soft, positive bowel sounds, nontender, no organomegaly.no flank tenderness SKIN: No rash, no excessive bruising, petechiae, or purpura. NEUROLOGIC: Cranial nerves II-XII intact without motor/sensory deficit. psych- nml affect A/P: 1/ colon screening with fair prep PLAN: 1/ rept colo later this year --will amend prep and be compliant as discussed after colonoscopy [facility] Medical History Overweight Elevated rheumatoid factor Lumbago History of alcoholism Polyarthralgia Hx of fracture of nose Generalized anxiety disorder Poison lucy dermatitis Hypertension Surgical History Hx of section Family History Father No problems noted. 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
[2023-11-21 12:03] VITALS: BP 142/80; PULSE 66; BMI 23.6
== END 2023-11-21 12:59 | disposition home or self-care (01) ==
PROVIDERS: PCP Internal Medicine; Visit Provider Internal Medicine Gastroenterology
DX: Z12.11 Encounter for screening for malignant neoplasm of colon (principal); Z01.818 Encounter for other preprocedural examination
CPT/HCPCS: 99212

== ENCOUNTER → 2023-11-21 11:49 | Outpatient (BNVA) | payer OTHER, SELFPAY | PROVIDERS: PCP Internal Medicine; Visit Provider Internal Medicine Gastroenterology | DX: Z12.11 Encounter for screening for malignant neoplasm of colon (principal) | CPT/HCPCS: 99212 ==

== ENCOUNTER 2023-12-20 08:06 | Outpatient (AMB) | payer OTHER, SELFPAY ==
[2023-12-20 08:15] VITALS: BP 142/80; PULSE 66; O2SAT 100; BMI 25.1
--- NOTE | 2023-12-20 08:15 | MHC.PC.OV ---
Vital Signs 12/20/23 08:15 Height 5 ft 1 in Weight 133 lb BMI 25.1 BP 142/80 H Blood Pressure Location Rt brachial Position Sitting Pulse 66 Pulse Source Pulse Oximeter Pulse Oximetry (%) 100 Oxygen Delivery Method Room Air Intake Visit Reasons: PE Intake Note: Pt is here today for her PE Allergies No Known Allergies Allergy (Verified 03/09/24 09:42) Medication List - Last Reconciled 12/20/23 by Cee Chavira MD acetaminophen 650 mg PO Q6H PRN multivitamin 1 tab PO DAILY Tobacco use date assessed: 12/20/23 Dental Screening Dental Screen Date: 12/20/23 Did you have a dental visit in the last 12 months?: Yes Did you have a dental problem in the last 6 months where you did not have access to dental care?: Yes Was dental information given to patient?: Patient has dentist HPI PE HPI Details 53-year-old lady, here today for physical exam. She has osteoarthritis, evaluated by Rheumatology, hypertension currently not on any medication at present time, and history of alcoholism, quit in 2020. Blood pressure has been elevated 140/80. Denies any chest pain, headache, shortness of breath, lightheadedness She had a screening colonoscopy done but had to repeat due to inadequate prep, appointment already scheduled for August this year. Never had a mammogram. Was seeing Dr. Red for her routine Pap and pelvic exam, patient states that she is overdue and will schedule her own appointment. Complains of frequent anxiety attacks difficulty sleeping, has been under lot of stress taking care of her mother. Was prescribed escitalopram in the past which she states has not really helped. Complains of 5 day history of anterior shoulder pain on the left, history of trauma or strenuous exertion, has been taking ibuprofen which has afforded temporary relief. [facility] Medical History (Updated 03/09/24 @ 10:00 by Cee Chavira MD) History of alcoholism Chronic pain of left inguinal region Bunion of great toe of right foot Bunion of great toe of left foot COVID-19 vaccination refused Refused influenza vaccine Osteoarthritis Essential hypertension Overweight Elevated rheumatoid factor Lumbago Polyarthralgia Hx of fracture of nose Generalized anxiety disorder Poison lucy dermatitis Surgical History Hx of section Family History Father No problems noted. 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 1. Little interest or pleasure in doing things: not at all 2. Feeling down, depressed, or hopeless: not at all 3. Trouble falling or staying asleep, or sleeping too much: more than half the days 4. Feeling tired or having little energy: several days 5. Poor appetite or overeating: not at all 6. Feeling bad about yourself - or that you are a failure or have let yourself or your family down: several days 7. Trouble concentrating on things, such as reading the newspaper or watching television: not at all 8. Moving or speaking so slowly that other people could have noticed. Or the opposite - being so fidgety or restless that you have been moving around a lot more than usual: not at all 9. Thoughts that you would be better off or of hurting yourself in some way: not at all Total score: 4 Depression Screening Interpretation: Negative Depression Screening Done: Yes 98327 - PHQ-9 Billing: Yes Source: Developed by Drs. Alex Wahl, Divine Dawn, Mason Can and colleagues, with an educational jerzy from [employer]. Thrive Questionnaire Date Thrive assessed: 12/20/23 I am a: Patient What is your living situation today?: I have a steady place to live Within the past 12 months, did the food you bought not last and you didn't have the money to get more?: Never true Within the past 12 months, did you worry whether your food would run out before you got money to buy more?: Never true Do you have trouble paying for medicines?: No Do you have trouble getting transportation to medical appointments?: No Do you have trouble paying your heating and electricity bill?: No Do you have trouble taking care of your child, family member or friend?: Yes Do you have trouble with day-to-day activities such as bathing, preparing meals, shopping, managing finances, etc.?: No Are you currently unemployed and looking for a job?: No Are you interested in more education?: No THRIVE Score: 0 AUDIT C Alcohol Use Questionnaire (AUDIT-C) 1. How often do you have a drink containing alcohol?: Never Total Score: 0 JUAN-7 AMB Questionnaire JUAN-7 Date JUAN - 7 assessed: 12/20/23 Feeling nervous, anxious, or on edge: 1 = Several days Not being able to stop or control worryin = Several days Worrying too much about different things: 1 = Several days Trouble relaxin = Several days Being so restless that it is hard to sit still: 1 = Several days Becoming easily annoyed or irritable: 1 = Several days Feeling afraid as if something awful might happen: 1 = Several days Total JUAN-7 score (0-4 normal; 5-9 mild; 10-14 moderate; 15-21 severe): 7 Source: Developed by Drs. Alex Wahl, Divine Dawn, Mason Can and colleagues, with an educational jerzy from [employer]. JUAN-7 Assessment Billing JUAN-7 Assessment Tool: JUAN-7 Assessment 41462 Review of Systems Const Reports no additional complaints Eyes Denies change in vision ENT Reports no additional complaints Card Denies chest pain, Denies irregular heart rhythm, Denies lightheadedness and Denies dyspnea Resp Denies cough and Denies dyspnea GI Reports no additional complaints Reports no additional complaints Musc Reports as per HPI and Reports tingling Skin/Breast Denies rash Neuro Denies Abnormal speech present, Reports tingling and Reports paresthesias (Left lower extremity) Psych Reports no additional complaints Endo Reports no additional complaints Gerson/Lymph Reports no additional complaints Aller/Immun Reports no additional complaints Physical exam (Primary Care) Vital Signs: Last Vital Signs Pulse 66 12/20/23 08:15 BP 142/80 H 12/20/23 08:15 Pulse Ox 100 12/20/23 08:15 Oxygen Delivery Method Room Air 12/20/23 08:15 BMI result Body Mass Index 25.1 Tobacco/Smoking Status: Tobacco use Status Tobacco use date assessed 12/20/23 12/20/23 08:18 Patient Tobacco Use Status Never used Tobacco 12/20/23 08:18 e-Cigarette/Vaping Use Never Used 12/20/23 08:18 PHQ-9: PHQ-9 Score PHQ-9: Total score 4 03/11/24 17:52 Depression Screening Interpretation: Negative Thrive Assessment: Date of Thrive Assessment Date Thrive assessed 12/20/23 12/20/23 09:05 Const General: no acute distress and alert Nutritional Appearance: overweight Orientation/consciousness: patient oriented x3 HENMT Ears: external ears normal General nose exam: Normal external nose present and No nasal discharge present Mouth: oropharynx normal and moist mucous membranes Eyes General: appearance normal, both eyes and all related structures Neck Neck: Yes full ROM, Yes no lymphadenopathy and Yes supple Chest Chest palpation & inspection: normal inspection of the chest Breast/axilla inspection: normal inspection of the breasts Breast/axilla palpation: normal palpation of the breasts Resp Effort & Inspection: normal respiratory effort and able to speak in complete sentences Auscultation: clear to auscultation bilaterally Cardio Rate: regular rate Rhythm: regular rhythm Heart sounds: S1 normal heart sound present and S2 normal heart sound present GI Palpation (GI): Soft to palpation, nontender and no masses Auscultation: normal bowel sounds General: Yes deferred (Sees her OBGYN at [facility]) Back/Spine/Pelvis Thoracic/Lumbar Spine: thoraco-lumbar ROM normal, straight leg raise negative bilaterally and No paraspinal muscle tenderness Skin General skin exam: no rashes or lesions noted Neuro General: patient oriented x3 Cranial nerves: Yes CN's II-XII intact bilaterally Cognition (Neuro): normal cognition Speech: No Abnormal speech present Extrem Other: Decreased range of motion of left shoulder joint due to pain, with no gross bone deformity or joint swelling seen. Negative impingement sign, Bilateral bunion nontender General: Yes full ROM, Yes no joint enlargement, Yes no clubbing, cyanosis or edema and Yes no calf tenderness Psych Appearance: grossly normal and well kempt Mental Status: mental status grossly normal Speech and movement: Normal speech and movement present Affect: normal affect Attitude: cooperative Thought process: Normal thought process present Thought content: Normal thought content present Assessment and Plan Assessment & Plan (1) Annual visit for general adult medical examination with abnormal findings: Code(s): Z00.01 - Encounter for general adult medical examination with abnormal findings Plan: Will check appropriate labs. Recommended dental visit every 6 months and regular eye exams, at least every 2 years. Take adequate calcium in diet and vitamin-D 3 at 2000 IU per cap once a day, in addition to weight-bearing exercises to help maintain good muscle tone and weight control. Instructed to do self-breast exam, and scheduled for screening mammogram goes to her own OB for her routine Pap and pelvic exam. Scheduled for colonoscopy later this year. Does not want to get COVID vaccination or flu shot (2) Essential hypertension: Code(s): I10 - Essential (primary) hypertension Plan: Elevated blood pressure, will start on lisinopril 5 mg per tablet daily taken once a day in a.m.. Reinforced importance of following a low-salt diet and getting regular exercise. (3) Generalized anxiety disorder: Code(s): F41.1 - Generalized anxiety disorder Plan: Discontinue escitalopram will start on buspirone 5 mg 1 tablet 3 times a day. Declined referral for counseling (4) Acute pain of left shoulder: Code(s): M25.512 - Pain in left shoulder Plan: Advised to try diclofenac gel massaged to on to affected joint to 2 3 times a day as needed. Call if no improvement of symptoms Orders: Orders MM tomosynthesis screening BI 12/20/23 Z12.31 - Encounter for screening mammogram for malignant neoplasm of breast Alanine Aminotransferase 12/20/23 I10 - Essential (primary) hypertension, Z00.01 - Encounter for general adult medical examination with abnormal findings, F41.1 - Generalized anxiety disorder Lipid Panel 12/20/23 I10 - Essential (primary) hypertension, Z00.01 - Encounter for general adult medical examination with abnormal findings, F41.1 - Generalized anxiety disorder Basic Metabolic Panel Fasting 12/20/23 I10 - Essential (primary) hypertension, Z00.01 - Encounter for general adult medical examination with abnormal findings, F41.1 - Generalized anxiety disorder Aspartate Amino Transferase 12/20/23 I10 - Essential (primary) hypertension, Z00.01 - Encounter for general adult medical examination with abnormal findings, F41.1 - Generalized anxiety disorder Vitamin D 25-OH Total 12/20/23 I10 - Essential (primary) hypertension, Z00.01 - Encounter for general adult medical examination with abnormal findings, F41.1 - Generalized anxiety disorder Medications: New lisinopril 5 mg PO DAILY 30 tabs 2RF buspirone 5 mg PO TID 90 tabs 1RF Coding Level of Care Code Est Pt Prev Care 40-64y(51940) Diagnoses Annual visit for general adult medical examination with abnormal findings Z00.01 Essential hypertension I10 Generalized anxiety disorder F41.1 Acute pain of left shoulder M25.512 Additional Codes JUAN-7 Assessment Billing - JUAN-7 Assessment Tool: JUAN-7 Assessment 43984 ([id number])
== END 2023-12-20 09:56 | disposition home or self-care (01) ==
PROVIDERS: Visit Provider Internal Medicine
DX: Z00.01 Encounter for general adult medical examination with abnormal findings (principal); I10 Essential (primary) hypertension; F41.1 Generalized anxiety disorder; M25.512 Pain in left shoulder
CPT/HCPCS: 99396

== ENCOUNTER 2024-01-10 06:58 | Outpatient (REF) | payer OTHER, SELFPAY ==
[2024-01-10 11:35] LABS: Alanine Aminotransferase 22 U/L (0-31); Anion Gap 9 (12-20); Aspartate Amino Transferase 31 U/L (5-31); Blood Urea Nitrogen 13 mg/dL (9-16); Calcium 9.3 mg/dL (8.4-10.2); Carbon Dioxide 29 mmol/L (22-29); Chloride 106 mmol/L (96-108); Cholesterol 160 mg/dL (<200); Estimated Glomerular Filt Rate > 60; Glucose Fasting 88 mg/dL (60-99); HDL Cholesterol 60 mg/dL (>40); LDL Cholesterol Calculated 85 mg/dL (<100); Potassium 4.3 mmol/L (3.3-5.1); Sodium 140 mmol/L (135-145); Triglycerides 78 mg/dL (<150); Vitamin D 25-OH Total 45.6 ng/mL (>30)
== END 2024-01-10 06:59 | disposition home or self-care (01) ==
LOC: HO.HMGCLDS 06:58
PROVIDERS: PCP Internal Medicine; Visit Provider Internal Medicine
DX: Z00.01 Encounter for general adult medical examination with abnormal findings (principal); F41.1 Generalized anxiety disorder; I10 Essential (primary) hypertension
CPT/HCPCS: 36415; 80048; 80061; 82306; 84450; 84460

== ENCOUNTER 2024-03-09 08:55 | Outpatient (AMB) | payer OTHER, SELFPAY ==
[2024-03-09 09:06] VITALS: BP 108/80; PULSE 64; O2SAT 99; BMI 24.9
--- NOTE | 2024-03-09 09:06 | A.OFFPC_ITS ---
Vital Signs 03/09/24 09:06 Height 5 ft 1 in Weight 132 lb BMI 24.9 BP 108/80 Blood Pressure Location Rt brachial Position Sitting Pulse 64 Pulse Source Pulse Oximeter Pulse Oximetry (%) 99 Oxygen Delivery Method Room Air Intake Visit Reasons: 4 week follow up R/S 01/19 Intake Note: Pt is here today for her 4 weeks f/u buspirone Allergies No Known Allergies Allergy (Verified 03/09/24 09:42) Medication List - Last Reconciled 03/09/24 by Cee Chavira MD buspirone 5 mg PO TID lisinopril 5 mg PO DAILY multivitamin 1 tab PO DAILY Tobacco use date assessed: 03/09/24 Dental Screening Dental Screen Date: 03/09/24 Did you have a dental visit in the last 12 months?: Yes Did you have a dental problem in the last 6 months where you did not have access to dental care?: No Was dental information given to patient?: Patient has dentist HPI 4 week follow up R/S 01/19 HPI Details 53-year-old lady with generalized anxiet y disorder, hypertension, here today for follow-up. Blood pressure controlled on lisinopril 5 mg daily, needs a refill, and she anxiety is better controlled on buspirone taken 5 mg 1 tablet 3 times a day. Complains pain in her left inguinal area, especially when doing squats or climbing stairs. Denies any history of trauma or strenuous exertion. Has tried taking Tylenol and [id number] NSAIDs which affords only temporary relief. She also has bunions on both big toes which is increasing in size and now causing pain when walking. Can only wear wide rubber shoes now as any other footwear causes pain. Requesting referral to Podiatry. [facility] Medical History (Updated 03/09/24 @ 10:00 by Cee Chavira MD) History of alcoholism Chronic pain of left inguinal region Bunion of great toe of right foot Bunion of great toe of left foot COVID-19 vaccination refused Refused influenza vaccine Osteoarthritis Essential hypertension Overweight Elevated rheumatoid factor Lumbago Polyarthralgia Hx of fracture of nose Generalized anxiety disorder Poison lucy dermatitis Surgical History Hx of section Family History Father No problems noted. 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 Depression Screening Interpretation: Negative Depression Screening Done: Yes Source: Developed by Drs. Alex Wahl, Divine Dawn, Mason Can and colleagues, with an educational jerzy from [employer]. Thrive Questionnaire Date Thrive assessed: 12/20/23 JUAN-7 AMB Questionnaire JUAN-7 Date JUAN - 7 assessed: 03/09/24 Feeling nervous, anxious, or on edge: 0 = Not at all Not being able to stop or control worryin = Not at all Worrying too much about different things: 1 = Several days Trouble relaxin = Not at all Being so restless that it is hard to sit still: 0 = Not at all Becoming easily annoyed or irritable: 0 = Not at all Feeling afraid as if something awful might happen: 0 = Not at all Total JUAN-7 score (0-4 normal; 5-9 mild; 10-14 moderate; 15-21 severe): 1 Source: Developed by Drs. Alex Wahl, Divine Dawn, Mason Can and colleagues, with an educational jerzy from [employer]. JUAN-7 Assessment Billing JUAN-7 Assessment Tool: JUAN-7 Assessment 56115 Review of Systems Card Denies chest pain, Denies irregular heart rhythm, Denies lightheadedness and Denies dyspnea Resp Denies cough and Denies dyspnea GI Reports no additional complaints Reports no additional complaints Musc Reports as per HPI and Reports tingling Skin/Breast Denies rash Neuro Denies Abnormal speech present, Reports tingling and Reports paresthesias (Left lower extremity) Psych Reports no additional complaints Physical exam (Primary Care) Vital Signs: Last Vital Signs Pulse 64 03/09/24 09:06 BP 108/80 03/09/24 09:06 Pulse Ox 99 03/09/24 09:06 Oxygen Delivery Method Room Air 03/09/24 09:06 BMI result Body Mass Index 24.9 Tobacco/Smoking Status: Tobacco use Status Tobacco use date assessed 03/09/24 03/09/24 09:07 Patient Tobacco Use Status Never used Tobacco 03/09/24 09:07 e-Cigarette/Vaping Use Never Used 03/09/24 09:07 Depression Screening Interpretation: Negative Thrive Assessment: Date of Thrive Assessment Date Thrive assessed 12/20/23 03/09/24 09:07 Const General: no acute distress and alert Nutritional Appearance: overweight Orientation/consciousness: patient oriented x3 Limitations: no limitations HENMT Head: Yes normocephalic Ears: external ears normal, TM's normal bilaterally and EAC's normal General nose exam: Normal external nose present and No nasal discharge present Mouth: Normal oral and palatal mucosa present, oropharynx normal and moist mucous membranes Eyes General: appearance normal, both eyes and all related structures Neck Neck: Yes full ROM, Yes no lymphadenopathy and Yes supple Resp Effort & Inspection: normal respiratory effort and able to speak in complete sentences Auscultation: clear to auscultation bilaterally Cardio Rate: regular rate Rhythm: regular rhythm Heart sounds: S1 normal heart sound present and S2 normal heart sound present GI Palpation (GI): Soft to palpation, nontender and no masses Auscultation: normal bowel sounds General: Yes deferred (Sees her OBGYN at [facility]) Back/Spine/Pelvis Thoracic/Lumbar Spine: thoraco-lumbar ROM normal, straight leg raise negative bilaterally and No paraspinal muscle tenderness Skin General skin exam: no rashes or lesions noted Neuro General: patient oriented x3, gait normal, tone normal, moves all extremities, Normal light touch and pain sensation, no focal motor deficits and normal sensation to monofilament Cranial nerves: Yes CN's II-XII intact bilaterally Cognition (Neuro): normal cognition Speech: No Abnormal speech present Extrem Other: Tenderness on palpation over left inguinal area, with pain elicited in left inguinal area on flexion of left hip joint General: Yes full ROM, Yes no joint enlargement, Yes no clubbing, cyanosis or edema and Yes no calf tenderness Psych Appearance: grossly normal and well kempt Mental Status: mental status grossly normal Speech and movement: Normal speech and movement present Affect: normal affect Attitude: cooperative Thought process: Normal thought process present Thought content: Normal thought content present Results Reviewed Results Reviewed: nette: Rianna Patterson Age/Sex: 53/F : 1970 Unit#: [id number] Attend Dr: Cee Chavira MD Re01/10/24 Status: DEP REF Location: [facility] Disch: SPEC : [id number] ARMIN: 01/10/24 STATUS: COMP REQ : [id number] RECD: 01/10/24-[address]: Cee Chavira MD COMP: 01/10/24 ENTERED: 01/10/[address]: ORDERED: Met Prof Fast, AST, ALT, Lipid Panel, Vitamin D 25-OH Test Result Flag Reference Sodium 140 135-145 mmol/L Potassium 4.3 3.3-5.1 mmol/L CL 106 96-108 mmol/L CO2 29 22-29 mmol/L Gap 9 L 12-20 BUN 13 9-16 mg/dL Creat 0.72 0.5-1.4 mg/dL EGFR > 60 NOTE: For -[place]ong[place] individuals, multiply the result by 1.210. Chronic Kidney Disease: Estimated GFR < 60 mL/min/1.73m2 Severe Kidney Disease: Estimated GFR < 15 mL/min/1.73m2 FBS 88 60-99 mg/dL CA 9.3 8.4-10.2 mg/dL AST (GOT) 31 5-31 U/L ALT (GPT) 22 0-31 U/L Triglyceride 78 <150 mg/dL Desirable Triglyceride: less than 150 mg/dL Borderline High Triglyceride 150-199 mg/dL High Triglyceride: 200-499 mg/dL Very High Triglyceride: greater than or equal to 5OO mg/dL Cholesterol 160 <200 mg/dL Desirable Cholesterol: less than 200 mg/dL Borderline High Cholesterol: 200-239 mg/dL High Cholesterol: greater than 239 mg/dL LDL Calculated 85 <100 mg/dL Desirable LDL: less than 100 mg/dL Near Optimal/Above Optimal LDL: 110-129 mg/dL Borderline High LDL: 130-159 mg/dL High LDL: 160-189 mg/dL Very High LDL: greater than or equal to 190 mg/dL HDL 60 >40 mg/dL Desirable HDL: greater than 40 mg/dL Note: This HDL assay may give artificially low results in patients with liver disease. Vit D 25-OH Tot 45.6 >30 ng/mL Health Based Reference Values* < 20 ng/mL Deficient 20-30 ng/mL Insufficient > 30 ng/mL Sufficient Assessment and Plan Assessment & Plan (1) Generalized anxiety disorder: Code(s): F41.1 - Generalized anxiety disorder Plan: Continue with buspirone, anxiety controlled with present medication (2) Essential hypertension: Code(s): I10 - Essential (primary) hypertension Plan: Blood pressure at goal of less than 130/80. Continue with current medication. Reinforced importance of following a low sodium diet, getting regular exercise, and lowering stress levels. (3) Bunion of great toe of left foot: Code(s): M21.612 - Bunion of left foot Plan: Podiatry consult ordered (4) Bunion of great toe of right foot: Code(s): M21.611 - Bunion of right foot (5) Chronic pain of left inguinal region: Code(s): R10.32 - Left lower quadrant pain; G89.29 - Other chronic pain Plan: X-ray of hip and pelvis ordered referred to orthopedics for further evaluation management. Orders: Orders XR hip BI w PEL1V 03/09/24 G89.29 - Other chronic pain, R10.32 - Left lower quadrant pain Referrals Podiatry Referral M21.611 - Bunion of right foot, M21.612 - Bunion of left foot Orthopedics Referral G89.29 - Other chronic pain, R10.32 - Left lower quadrant pain Medications: Refilled lisinopril 5 mg PO DAILY 90 tabs 2RF Coding Level of Care Code Est Pt Level 4 (77089) Diagnoses Generalized anxiety disorder F41.1 Essential hypertension I10 Bunion of great toe of left foot M21.612 Bunion of great toe of right foot M21.611 Chronic pain of left inguinal region R10.32; G89.29 Additional Codes JUAN-7 Assessment Billing - JAUN-7 Assessment Tool: JUAN-7 Assessment 88211 ([id number])
== END 2024-03-09 10:02 | disposition home or self-care (01) ==
PROVIDERS: PCP Internal Medicine; Visit Provider Internal Medicine
DX: I10 Essential (primary) hypertension (principal); F41.1 Generalized anxiety disorder; M21.612 Bunion of left foot; M21.611 Bunion of right foot; R10.32 Left lower quadrant pain; G89.29 Other chronic pain
CPT/HCPCS: 99214

== ENCOUNTER 2024-03-09 10:05 | Outpatient (REF) | payer OTHER, SELFPAY ==
--- NOTE | ~2024-03-09 | XR_ITS ---
EXAMINATION: XR BILATERAL HIPS WITH AP PELVIS CLINICAL INFORMATION: Pain left lower quadrant. COMPARISON: None available. TECHNIQUE: AP of the pelvis and AP and lateral views of each hip. FINDINGS: Right hip: There are marginal osteophytes at the femoral head-neck junction. Joint space normal. Surrounding bone and soft tissues normal. Overall mild osteoarthritis. Left hip: Small marginal osteophytes at the femoral head-neck junction and acetabulum with mild joint space narrowing indicative of [id number] osteoarthritis. Pelvis: Hips as above. Mild degenerative changes of the symphysis pubis. Sacroiliac joints unremarkable. Spondylosis of the partially visualized lumbosacral spine with bilateral facet arthrosis at the L4-L5 and L5-S1 levels. XR/XR hip BI w PEL1V IMPRESSION: RIGHT HIP: Mild osteoarthritis. LEFT HIP: [id number] osteoarthritis.
== END 2024-03-09 10:06 | disposition home or self-care (01) ==
LOC: HO.HMGCLDS 10:05
PROVIDERS: PCP Internal Medicine; Visit Provider Internal Medicine
DX: R10.32 Left lower quadrant pain (principal); G89.29 Other chronic pain
CPT/HCPCS: 73521

== ENCOUNTER 2024-03-30 08:46 | Outpatient (AMB) | payer OTHER, SELFPAY ==
--- NOTE | 2024-03-30 08:55 | A.OFFVIS_ITS ---
Intake Visit Reasons: New Pt - Left hip pain Intake Note: Rianna is a 53 year old female who presents today as a new patient for a evaluation of her left hip pain. Patient reports having ongoing pain for about couple months, and it is getting worse. No hx of Injury. She expresses that her pain is near the groin area and radiates up to her lower back. She expresses going to P.T for about 4 - 6 weeks with no relief. Allergies No Known Allergies Allergy (Verified 03/30/24 08:58) HPI HPI New Pt - Left hip pain: Details: 53-year-old female who presents in the office today, as a new patient, for an evaluation of left hip pain. Patient was seen by her PCP on 03/09/2024 with a complaint of pain when doing squats or climbing stairs. While in the office today the patient reports she has had ongoing pain for a few months. She states the pain has increased over time. She claims this is affecting her daily activities, like going to the gym. Reports her pain is located in the groin area of the left hip, but reports radiating pain to the lower back and down to her left knee. She denies any known injury. She confirms attending physical therapy for about 4-6 weeks with no relief. [facility] Medical History (Updated 03/30/24 @ 09:22 by Josie Go) History of alcoholism Chronic pain of left inguinal region Bunion of great toe of right foot Bunion of great toe of left foot COVID-19 vaccination refused Refused influenza vaccine Osteoarthritis Essential hypertension Overweight Elevated rheumatoid factor Lumbago Polyarthralgia Hx of fracture of nose Generalized anxiety disorder Poison lucy dermatitis Surgical History Hx of section Family History Father No problems noted. 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 No ecchymosis, erythema, or edema. Full hip ROM in all planes. No tenderness to palpation over the greater trochanteric bursa. Groin pain reported with internal and external rotation. 5/5 strength with resisted hip flexion, knee extension, abduction, and abduction. Able to perform straight leg raise. NVI. Assessment & Plan Assessment & Plan (1) Osteoarthritis of left hip: Code(s): M16.12 - Unilateral primary osteoarthritis, left hip Category: Medical Qualifiers: Osteoarthritis type: unspecified Qualified Code(s): M16.12 - Unilateral primary osteoarthritis, left hip Plan Ms. Patterson is a 53-year-old female who presents in the office today, as a new patient, for an evaluation of left hip pain. Patient was seen by her PCP on 03/09/2024 with a complaint of pain when doing squats or climbing stairs. While in the office today the patient reports she has had ongoing pain for a few months. She states the pain has increased over time. She claims this is affecting her daily activities, like going to the gym. Reports her pain is located in the groin area of the left hip, but reports radiating pain to the lower back and down to her left knee. She denies any known injury. She confirms attending physical therapy for about 4-6 weeks with no relief. A referral for the patient to undergo an intra-articular injection in the left hip was made in the office today. The patient will call the office after the injection is obtained. Follow up will in 6 weeks after the injection is obtained, or sooner if needed. X-rays of the pelvis, obtained on 03/09/2024, revealed: [id number] osteoarthritis. Orders: Orders FL arthrogram hip LT Today M16.12 - Unilateral primary osteoarthritis, left hip Patient Instructions: Scribed by Josie Go medical reimbursement manager, for Liz Chávez PA-C on 03/30/2024 at 9:20 am, EST. Coding Level of Care Code New Pt Level 3 (30531) Diagnoses Osteoarthritis of left hip, unspecified osteoarthritis type M16.12 Osteoarthritis type: unspecified
== END 2024-03-30 09:35 | disposition home or self-care (01) ==
PROVIDERS: PCP Internal Medicine; Visit Provider Physician Assistant
DX: M16.12 Unilateral primary osteoarthritis, left hip (principal)
CPT/HCPCS: 99203

== ENCOUNTER → 2024-03-30 08:46 | Outpatient (BNVA) | payer OTHER, SELFPAY | PROVIDERS: PCP Internal Medicine; Visit Provider Physician Assistant | DX: M16.12 Unilateral primary osteoarthritis, left hip (principal) | CPT/HCPCS: 99202 ==

== ENCOUNTER 2024-04-26 13:19 | Outpatient (REF) | payer OTHER, SELFPAY ==
--- NOTE | ~2024-04-26 | FL_ITS ---
FLUOROSCOPIC LEFT HIP STEROID INJECTION INDICATIONS: Left hip pain. Orthopedic surgery requests intra-articular left hip steroid injection. PROCEDURE: Risks and benefits and possible complications were discussed with the patient and the consent form was signed. The patient was placed hip on the fluoroscopy table. The left hip was prepped and draped in normal sterile fashion. 1% buffered lidocaine was used for anesthesia. A 22-gauge spinal needle was used to access the intra-articular hip joint. Intra-articular position of the needle within the hip joint was verified using 3 cc of Omnipaque 300. A total of 5 mL of 1% lidocaine and 80 mg Depo-Medrol was then injected into the left hip joint. The needle was then removed and a Band-Aid was applied to the injection site. The patient tolerated the procedure well. There were no immediate complications. Single spot image demonstrates mild arthritic changes in the left hip joint with overall preservation of joint space, mild subchondral sclerosis of the acetabulum, and small acetabular lip and subcapital osteophytes. FL/FL arthrogram hip LT IMPRESSION: -Successful fluoroscopic-guided left hip intra-articular steroid injection. -Mild osteoarthritis left hip joint. The procedure was performed by Armando Richey PA-C, and directly supervised by Dr. Lewis.
== END 2024-04-26 13:20 | disposition home or self-care (01) ==
LOC: HO.XRAY 13:19
PROVIDERS: PCP Internal Medicine; Visit Provider Physician Assistant
DX: M16.12 Unilateral primary osteoarthritis, left hip (principal)
CPT/HCPCS: 27093; 73525

== ENCOUNTER → 2024-04-26 13:21 | Outpatient (BNV) | payer OTHER, SELFPAY | PROVIDERS: PCP Internal Medicine; Visit Provider Physician Assistant Surgical | DX: M16.12 Unilateral primary osteoarthritis, left hip (principal) | CPT/HCPCS: 20610; 77002 ==

== ENCOUNTER 2024-06-29 09:51 | Outpatient (AMB) | payer OTHER, SELFPAY ==
[2024-06-29 09:52] VITALS: BMI 24.9
--- NOTE | 2024-06-29 09:52 | A.OFFVIS_ITS ---
Vital Signs 06/29/24 09:52 Height 5 ft 1 in Weight 132 lb BMI 24.9 Intake Visit Reasons: OV - left hip OA, last arthrogram inj 04/26/24 Intake Note: Rianna is a 53 year old female who presents today as a new patient for a evaluation of her left hip OA, last arthrogram inj 04/26/24. Patient reports her last injection gave her about 3 weeks of relief. She was wondering if there is anything else she can try to help with the pain. Allergies No Known Allergies Allergy (Verified 03/30/24 08:58) HPI HPI OV - left hip OA, last arthrogram inj 04/26/24: Details: 53-year-old female who presents in the office today for a follow-up of left hip pain. I last saw the patient in the office on 03/30/24 when we discussed proceeding with a left hip injection. She underwent a left hip arthrogram on 04/26/24.? ? While in the office today, the patient reports the arthrogram only gave her about three weeks of near complete relief. After that the pain returned to her baseline. She is interested in discussing if there is anything else she can do to help with the pain. She reports difficulty with sleeping. She also has difficulty with her daily activities and is no longer able to swim in her pool due to pain in the groin that radiates to the anterior thigh. ? [facility] Medical History (Updated 03/30/24 @ 09:22 by Josie Go) History of alcoholism Chronic pain of left inguinal region Bunion of great toe of right foot Bunion of great toe of left foot COVID-19 vaccination refused Refused influenza vaccine Osteoarthritis Essential hypertension Overweight Elevated rheumatoid factor Lumbago Polyarthralgia Hx of fracture of nose Generalized anxiety disorder Poison lucy dermatitis Surgical History Hx of section Family History Father No problems noted. 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 No ecchymosis, erythema, or edema. Full hip ROM in all planes. No tenderness to palpation over the greater trochanteric bursa. Groin pain reported with internal and external rotation. 5/5 strength with resisted hip flexion, knee extension, abduction, and abduction. Able to perform straight leg raise. NVI. Assessment & Plan Assessment & Plan (1) Osteoarthritis of left hip: Code(s): M16.12 - Unilateral primary osteoarthritis, left hip Category: Medical Qualifiers: Osteoarthritis type: unspecified Qualified Code(s): M16.12 - Unilateral primary osteoarthritis, left hip Plan Ms. Patterson is a 53-year-old female who presents in the office today for a follow-up of left hip pain. I last saw the patient in the office on 03/30/24 when we discussed proceeding with a left hip injection. She underwent a left hip arthrogram on 04/26/24.? ? While in the office today, the patient reports the arthrogram only gave her about three weeks of near complete relief. After that the pain returned to her baseline. She is interested in discussing if there is anything else she can do to help with the pain. She reports difficulty with sleeping. She also has difficulty with her daily activities and is no longer able to swim in her pool due to pain in the groin that radiates to the anterior thigh. ? ? The patient would like to discuss surgical versus continued conservative treatment, therefore, I would like for her to be evaluated by Dr. Garcia. Follow-up will be with Dr. Garcia, or sooner if needed.? Patient Instructions: Scribed by Josie Rodeen, medical typist, for Liz Kyler WILBURN on 06/29/2024 at 10:07 am, EST.? Coding Level of Care Code Est Pt Level 3 (87465) Diagnoses Osteoarthritis of left hip, unspecified osteoarthritis type M16.12 Osteoarthritis type: unspecified
== END 2024-06-29 10:14 | disposition home or self-care (01) ==
PROVIDERS: PCP Internal Medicine; Visit Provider Physician Assistant
DX: M16.12 Unilateral primary osteoarthritis, left hip (principal)
CPT/HCPCS: 99213

== ENCOUNTER → 2024-06-29 09:51 | Outpatient (BNVA) | payer OTHER, SELFPAY | PROVIDERS: PCP Internal Medicine; Visit Provider Physician Assistant | DX: M16.12 Unilateral primary osteoarthritis, left hip (principal) | CPT/HCPCS: 99212 ==

== ENCOUNTER 2024-07-13 11:04 | Outpatient (AMB) | payer OTHER, SELFPAY ==
[2024-07-13 11:15] VITALS: BMI 24.9
--- NOTE | 2024-07-13 11:15 | A.OFFVIS_ITS ---
Vital Signs 07/13/24 11:15 Height 5 ft 1 in Weight 132 lb BMI 24.9 Intake Visit Reasons: OV-left hip OA, last arthrogram inj 04/26/24 Intake Note: Rianna is a 53 year old female who presents today for a follow up of her left hip OA, she had an intrarticular injection on 04/26/24. Patient was referred by Liz Chávez to discuss surgical intervention, KARTHIK. Patient states that the injection helped for only about 3 weeks. Patient is unable to sleep good at night, and do some other activities like swimming and walking for long periods of time. She states that she has just been dealing with the pain, pain meds doesn't bring relief. Patient would like to discuss other treatment options. Allergies No Known Allergies Allergy (Verified 07/13/24 11:15) HPI HPI OV-left hip OA, last arthrogram inj 04/26/24: Details: Rianna is a 53 year old female who presents today for a follow up of her left hip OA, she had an intrarticular injection on 04/26/24. Patient was referred by Liz Chávez to discuss surgical intervention, KARTHIK. Patient states that the injection helped for only about 3 weeks. Patient is unable to sleep good at night, and do some other activities like swimming and walking for long periods of time. She states that she has just been dealing with the pain, pain meds doesn't bring relief. Patient would like to discuss other treatment options. She has active and healthy. She states she is unable to return to her physical exercise program. She describes pain in her left groin. [facility] Medical History (Updated 03/30/24 @ 09:22 by Josie Go) History of alcoholism Chronic pain of left inguinal region Bunion of great toe of right foot Bunion of great toe of left foot COVID-19 vaccination refused Refused influenza vaccine Osteoarthritis Essential hypertension Overweight Elevated rheumatoid factor Lumbago Polyarthralgia Hx of fracture of nose Generalized anxiety disorder Poison lucy dermatitis Surgical History Hx of section Family History Father No problems noted. 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 Results Reviewed Results Reviewed: I personally reviewed relevant radiographs. There is mild right and moderate left hip osteoarthritis. Assessment & Plan Assessment & Plan (1) Osteoarthritis of left hip: Code(s): M16.12 - Unilateral primary osteoarthritis, left hip Category: Medical Qualifiers: Osteoarthritis type: unspecified Qualified Code(s): M16.12 - Unilateral primary osteoarthritis, left hip Plan: This is a 53-year-old woman with left hip osteoarthritis. She has been missed diagnosed for long periods of time with chronic pain of inguinal region for example. She describes being extremely active and I think this is probably exacerbating her hip. We discussed treatment options including therapy, injections and surgery. She is not ready for either injections or surgery. She has difficulty sleeping at night and this does frustrate her. I prescribed her Lyrica at nighttime. See if this is helpful for her. In addition I recommend modifying her squat like activities and engaging in strengthening of the pelvic girdle. She expressed understanding and will see me back in 3 months' time. Coding Level of Care Code Est Pt Level 4 (93699) Diagnoses Osteoarthritis of left hip, unspecified osteoarthritis type M16.12 Osteoarthritis type: unspecified
== END 2024-07-13 11:51 | disposition home or self-care (01) ==
PROVIDERS: PCP Internal Medicine; Visit Provider Orthopaedic Surgery
DX: M16.12 Unilateral primary osteoarthritis, left hip (principal)
CPT/HCPCS: 99214

== ENCOUNTER → 2024-07-13 11:04 | Outpatient (BNVA) | payer OTHER, SELFPAY | PROVIDERS: PCP Internal Medicine; Visit Provider Orthopaedic Surgery | DX: M16.12 Unilateral primary osteoarthritis, left hip (principal) | CPT/HCPCS: 99212 ==

== ENCOUNTER 2024-12-11 06:39 | Day surgery (SDC) | payer OTHER, SELFPAY ==
--- NOTE | 2024-12-10 13:31 | P.CONAN_ITS ---
Documented by User: Estela Lake NP 12/10/24 13:31 HPI - Anesthesia Eval Consult details Narrative: 54yo F for Colonoscopy PMFSH Active Problems Active Problems: All Active Problems Osteoarthritis of left hip (Acute) History of alcoholism (Acute) Chronic pain of left inguinal region (Acute) Bunion of great toe of right foot (Acute) Bunion of great toe of left foot (Acute) COVID-19 vaccination refused (Acute) Refused influenza vaccine (Acute) Osteoarthritis (Acute) Generalized anxiety disorder (Acute) Essential hypertension (Acute) Degenerative disc disease, lumbar (Acute) Overweight (Acute) Past Medical History Medical History Chronic pain of left inguinal region Bunion of great toe of right foot Bunion of great toe of left foot COVID-19 vaccination refused Refused influenza vaccine Osteoarthritis Essential hypertension Overweight Elevated rheumatoid factor Lumbago History of alcoholism Polyarthralgia Hx of fracture of nose Generalized anxiety disorder Poison lucy dermatitis Family History Family History Father No problems noted. Mother History of COPD Family history of problems with anesthesia: No Surgical History Surgical History Hx of wisdom tooth extraction H/O colonoscopy Hx of section History of Problems with Anesthesia: No Social History Social History Household Members: Spouse and Children Housing: House Do you presently have visiting nurse or other home services: No Alcohol intake: former Year quit: 2020 Patient Tobacco Use Status: Never used Tobacco Years Smoked: 10 yrs e-Cigarette/Vaping Use: Never Used Use of substances other than those prescribed or required for medical reasons: No Are you DNR?: No Advance Directives: No Advance Directives Information Provided: Yes Advance Directives Date on File: 11/11/21 service: No Current occupational status: employed 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 Cognitive needs: No Hearing needs: No Vision needs: No Meds Allergies Allergy/AdvReac Type Severity Reaction Status Date / Time No Known Allergies Allergy Verified 07/13/24 11:15 Home Medications ?Medication ?Instructions ?Recorded ?Confirmed ?Last Taken ?Type acetaminophen 650 mg 1,300 mg PO Q12H 12/11/24 12/11/24 Unknown History tablet,extended release (Tylenol Arthritis Pain) Assessment and Plan Assessment Anesthesia Assessment: Chart Reviewed Final Anesthetic Review Family History of Problems with Anesthesia: No History of Problems with Anesthesia: No Documented by User: Wyatt Butler MD 12/11/24 08:03 PMFSH Past Medical History Medical History Chronic pain of left inguinal region Bunion of great toe of right foot Bunion of great toe of left foot COVID-19 vaccination refused Refused influenza vaccine Osteoarthritis Essential hypertension Overweight Elevated rheumatoid factor Lumbago History of alcoholism Polyarthralgia Hx of fracture of nose Generalized anxiety disorder Poison lucy dermatitis Family History Family History Father No problems noted. Mother History of COPD Surgical History Surgical History Hx of wisdom tooth extraction H/O colonoscopy Hx of section Social History Social History Household Members: Spouse and Children Housing: House Do you presently have visiting nurse or other home services: No Alcohol intake: former Year quit: 2020 Patient Tobacco Use Status: Never used Tobacco Years Smoked: 10 yrs e-Cigarette/Vaping Use: Never Used Use of substances other than those prescribed or required for medical reasons: No Are you DNR?: No Advance Directives: No Advance Directives Information Provided: Yes Advance Directives Date on File: 11/11/21 service: No Current occupational status: employed 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 Cognitive needs: No Hearing needs: No Vision needs: No Meds Allergies Allergy/AdvReac Type Severity Reaction Status Date / Time No Known Allergies Allergy Verified 07/13/24 11:15 Home Medications ?Medication ?Instructions ?Recorded ?Confirmed ?Last Taken ?Type acetaminophen 650 mg 1,300 mg PO Q12H 12/11/24 12/11/24 Unknown History tablet,extended release (Tylenol Arthritis Pain) Assessment and Plan Assessment Anesthesia Assessment: Anesthesia Plan Discussed Final Anesthetic Review NPO: Yes ASA Class: II Final Preanesthetic Review: No Changes in Pt Med Stat, Meds/Allgs Chart Reviewed, Consent Obtained/Reviewed and Anes Risks/Benef Reviewed Patient Risk: Low Procedure Risk: Low Anesthetic Plan Anesthetic Plan: MAC: Disposition: Standard PACU
--- NOTE | 2024-12-11 06:37 | P.HPSUR_ITS ---
Pre-Procedural Eval Section A - 24 Hr Update-Section A only Date of Service: 12/11/24 Section B - Complete if H&P > 30 days Chief Complaint: Unspecified hemorrhoids Relevant Family History (Specify if Yes): No Relevant Social History: None Present Medications: see Short Stay Collaborative assessment Medical History: Significant History (History of alcoholism Chronic pain of left inguinal region Bunion of great toe of right foot Bunion of great toe of left foot COVID-19 vaccination refused Refused influenza vaccine Osteoarthritis Essential hypertension Overweight Elevated rheumatoid factor Lumbago P olyarthralgia Hx of fracture of no) History of Previous Operations: Relevant previous surgery/procedure and date(s) (c section) Allergies: Allergies Allergy/AdvReac Type Severity Reaction Status Date / Time No Known Allergies Allergy Verified 07/13/24 11:15 Review of Systems Sugical H&P ROS: Negative: Constitution, Cardiovascular, Respiratory, Neurological, Psychiatric, Hem-Onc, Allergic/Immunologic, Gastrointestinal, Genitourinary, Musculoskeletal, Integumentary, Endocrine and Eyes/Ears/Nose/Throat Exam Surgical H&P Exam: Normal: HEENT, Normal: Heart, Normal: Lungs, Normal: Extremities, Normal: Abdomen, Normal: Skin and Normal: Neurological Plan Diagnosis/Plan: Unchanged I have reviewed the history and physical and performed a pertinent physical examination on my patient. No changes have occurred unless specified. Time Spent With Patient Time: Total time managing care of this patient today ____ minutes.
[2024-12-11 06:49] VITALS: BMI 25.3
[2024-12-11 07:15] VITALS: BP 134/76; PULSE 74; RESP 15; TEMP 36.9; O2SAT 98
[2024-12-11] MEDS: Lactated Ringers 1,000 ML 100 ML IVCONT (07:16)
--- NOTE | 2024-12-11 08:11 | P.OPN-COLO_ITS ---
Colonoscopy Operative Note Operative Note Date of Service: 12/11/24 Narrative: Operative Information Procedure Description: Colonoscopy Indication: screening Anesthesia: MAC COLONOSCOPY Instrument: Olympus variable stiffness pediatric scope 190L Colonoscopy Monitoring: Vital signs and clinical assessment, continuous EKG monitoring, Pulse oximetry, Carbon Dioxide monitoring and blood pressure monitoring were done throughout the procedure. Colon withdrawal time was 10 minutes. Procedure: The patient was placed in the left lateral decubitis position and pre-procedure medications were administered. After a digital rectal examination of the ano-rectum, the video colonoscope was inserted into the rectum and advanced through the colon to the cecum/TI. The colonoscope was slowly withdrawn in a retrograde panoramic fashion and the colon mucosa was carefully examined including a retroflexed view of the rectum. Findings and interventions are described below. Procedure Difficulty: moderate due to tortuous colon Findings: Terminal Ileum-not intubated Cecum:normal Ascending Colon: normal Transverse Colon -normal Descending Colon:normal Sigmoid Colon: normal Rectum: Retroflexion with small to medium internal hemorrhoids seen, grade I Anorectum - normal Intervention: none Colon preparation: [place] Bowel Preparation Scale Right colon; 2 Transverse colon: 3 Left colon; 3 (0 = Unprepared colon segment with mucosa not seen due to solid stool that canno t be cleared. 1 = Portion of mucosa of the colon segment seen, but other areas of the colon segment not well seen due to staining, residual stool and/or opaque liquid. 2 = Minor amount of residual staining, small fragments of stool and/or opaque liquid, but mucosa of colon segment seen well. 3 = Entire mucosa of colon segment seen well with no residual staining, small fragments of stool or opaque liquid) Impression and Post Procedure Diagnosis: internal hemorrhoids Plan: High fiber diet leaflet Avoid straining at stool, epsom salts and sitz bath, anusol supps or cream Repeat Colonoscopy in 10 years or earlier if clinically indicated Above findings were reviewed with the patient and relevant handouts were provided if indicated.
[2024-12-11 08:19] VITALS: BP 100/70; PULSE 75; RESP 14; TEMP 36.2; O2SAT 99
[2024-12-11 08:37] VITALS: BP 135/71; PULSE 62; RESP 14; TEMP 36.4; O2SAT 99
== END 2024-12-11 08:51 | disposition home or self-care (01) ==
PROVIDERS: PCP Internal Medicine; Visit Provider Internal Medicine Gastroenterology
PROC: 0DJD8ZZ Inspection of Lower Intestinal Tract, Via Natural or Artificial Opening Endoscopic (ICD-10-PCS; CPT 45378; principal; 2024-12-11 07:30)
DX: Z12.11 Encounter for screening for malignant neoplasm of colon (principal); K64.0 First degree hemorrhoids; I10 Essential (primary) hypertension; M25.50 Pain in unspecified joint; M05.9 Rheumatoid arthritis with rheumatoid factor, unspecified; M54.50 Low back pain, unspecified; E66.3 Overweight; Z68.23 Body mass index [BMI] 23.0-23.9, adult; F41.9 Anxiety disorder, unspecified
CPT/HCPCS: 45378; J2003; J2704; J3010

== ENCOUNTER → 2024-12-11 06:39 | Outpatient (BNV) | payer OTHER, SELFPAY | PROVIDERS: PCP Internal Medicine; Visit Provider Internal Medicine Gastroenterology | DX: Z12.11 Encounter for screening for malignant neoplasm of colon (principal); K64.0 First degree hemorrhoids | CPT/HCPCS: 45378 ==

== ENCOUNTER 2025-03-22 06:10 | Outpatient (REF) | payer OTHER, SELFPAY ==
[2025-03-22 09:59] LABS: MANUAL DIFF FLAG NO
[2025-03-22 10:06] LABS: Basophils Percent Auto 0.8 % (0-2); Eosinophils Absolute Auto 0.1 X10*3/uL (0.0-0.4); Eosinophils Percent Auto 2.8 % (0-4); Hematocrit 36.7 % (37.0-47.0); Hemoglobin 12.8 g/dl (12.0-16.0); Lymphocytes Absolute Auto 2.2 X10*3/uL (1.2-4.9); Lymphocytes Percent Auto 55.4 % (20-40); Mean Corpuscular HGB Conc 34.9 g/dl (31.0-35.0); Mean Corpuscular Hemoglobin 30.5 pg (27.0-33.0); Mean Corpuscular Volume 87.4 fL (80.0-98.0); Mean Platelet Volume 9.4 fL (9.4-12.3); Monocytes Absolute Auto 0.4 X10*3/uL (0.1-1.2); Monocytes Percent Auto 10.3 % (2-11); Neutrophils Absolute Auto 1.2 x10*3/uL (2.0-8.3); Neutrophils Percent Auto 30.7 % (45-73); Platelet Count 231 X10*3/uL (160-400); Red Cell Distribution Width 13.1 % (11.0-16.0); White Blood Count 3.9 X10*3/uL (4.8-10.8)
[2025-03-22 10:17] LABS: Alanine Aminotransferase 24 U/L (0-31); Anion Gap 12 (12-20); Aspartate Amino Transferase 33 U/L (5-31); Blood Urea Nitrogen 17 mg/dL (9-16); Calcium 9.4 mg/dL (8.4-10.2); Carbon Dioxide 27 mmol/L (22-29); Chloride 106 mmol/L (96-108); Cholesterol 184 mg/dL (<200); Estimated Glomerular Filt Rate > 60; Glucose Fasting 92 mg/dL (60-99); HDL Cholesterol 60 mg/dL (>40); LDL Cholesterol Calculated 108 mg/dL (<100); Sodium 141 mmol/L (135-145); Triglycerides 81 mg/dL (<150)
== END 2025-03-22 06:11 | disposition home or self-care (01) ==
LOC: HO.HMGCLDS 06:10
PROVIDERS: PCP Internal Medicine; Visit Provider Internal Medicine
DX: I10 Essential (primary) hypertension (principal); F10.21 Alcohol dependence, in remission; E66.3 Overweight
CPT/HCPCS: 36415; 80048; 80061; 84450; 84460; 85025

== ENCOUNTER 2025-03-26 13:21 | Outpatient (AMB) | payer OTHER, SELFPAY ==
--- NOTE | 2025-03-26 13:29 | A.OFFPC_ITS ---
Vital Signs 03/26/25 13:39 Height 5 ft 1 in Weight 136 lb BMI 25.7 BP 132/82 Blood Pressure Location Lt brachial Position Sitting Respiration 16 Pulse 63 Pulse Source Pulse Oximeter Temp 98.1 F Temp Source Oral Pulse Oximetry (%) 98 Oxygen Delivery Method Room Air Intake Visit Reasons: Annual PE Intake Note: Pt is here today for her PE: last colonoscopy 12/11/24 Allergies No Known Allergies Allergy (Verified 03/26/25 13:41) Medication List - Last Reconciled 03/26/25 by Cee Chavira MD acetaminophen ER (Tylenol Arthritis Pain) 1,300 mg PO Q12H buspirone 5 mg PO DAILY lisinopril 5 mg PO DAILY multivitamin 1 tab PO DAILY Tobacco use date assessed: 03/26/25 Dental Screening Dental Screen Date: 03/26/25 Did you have a dental visit in the last 12 months?: Yes Did you have a dental problem in the last 6 months where you did not have access to dental care?: No Was dental information given to patient?: Patient has dentist HPI Annual PE HPI Details - The patient is a 54-year-old female wi th history of osteoarthritis left hip, degenerative disc disease lumbar spine, generalized anxiety disorder, and hypertension, presenting for her physical exam. Blood pressure stable and controlled on goes 5 mg daily. Takes buspirone 5 mg once a day for her anxiety disorder. -- She has history of a ganglion cyst po tentially caused by an old injury related to gymnastics during childhood, contributing to current symptoms. - She has experienced progressive discom fort in the hip, impeding sideways movement, while longitudinal mobility remains somewhat intact. - Her diagnosis was affirmed by Dr. Jason Mcintosh, with planned surgical intervention forthcoming. - Standing presents minimal discomfort, but walking and certain gym activities are difficult, demonstrating the osteoarthritis's impact on lifestyle and mobility. --overdue for her breast cancer screenin g, Mammogram ordered; follow-up at [facility]. - Colonoscopy completed by Dr. Cathy shafer this year with benign findings; follow-up scheduled every 10 years. - Vaccinations: reviewed with emphasis o n Tetanus booster if needed. - Discussed impacts of vitamin D deficie ncy and recommended supplementation over 2000 IU. [facility] Medical History Bunion of great toe of right foot Bunion of great toe of left foot COVID-19 vaccination refused Refused influenza vaccine Osteoarthritis Essential hypertension Overweight Elevated rheumatoid factor History of alcoholism Polyarthralgia Hx of fracture of nose Generalized anxiety disorder Surgical History Hx of wisdom tooth extraction H/O colonoscopy Hx of section Family History Father No problems noted. 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 1. Little interest or pleasure in doing things: several days 2. Feeling down, depressed, or hopeless: not at all 3. Trouble falling or staying asleep, or sleeping too much: several days 4. Feeling tired or having little energy: several days 5. Poor appetite or overeating: not at all 6. Feeling bad about yourself - or that you are a failure or have let yourself or your family down: not at all 7. Trouble concentrating on things, such as reading the newspaper or watching television: not at all 8. Moving or speaking so slowly that other people could have noticed. Or the opposite - being so fidgety or restless that you have been moving around a lot more than usual: not at all 9. Thoughts that you would be better off or of hurting yourself in some way: not at all Total score: 3 Depression Screening Interpretation: Negative Depression Screening Done: Yes 54305 - PHQ-9 Billing: Yes Source: Developed by Drs. Alex Wahl, Divine B.W. Mason Dawn and colleagues, with an educational jerzy from [employer]. Thrive Questionnaire Date Thrive assessed: 03/26/25 I am a: Patient What is your living situation today?: I have a steady place to live Within the past 12 months, did the food you bought not last and you didn't have the money to get more?: Sometimes True Within the past 12 months, did you worry whether your food would run out before you got money to buy more?: Never true Do you have trouble paying for medicines?: No Do you have trouble getting transportation to medical appointments?: No Do you have trouble paying your heating and electricity bill?: No Do you have trouble taking care of your child, family member or friend?: No Do you have trouble with day-to-day activities such as bathing, preparing meals, shopping, managing finances, etc.?: No Are you currently unemployed and looking for a job?: No Are you interested in more education?: No Please select the resources that you would like help with: None Currently or been in a relationship where the following occur: No concerns reported THRIVE Score: 1 AUDIT C Alcohol Use Questionnaire (AUDIT-C) 1. How often do you have a drink containing alcohol?: Never Total Score: 0 JUAN-7 AMB Questionnaire JUAN-7 Date JUAN - 7 assessed: 03/26/25 Feeling nervous, anxious, or on edge: 0 = Not at all Not being able to stop or control worryin = Not at all Worrying too much about different things: 0 = Not at all Trouble relaxin = Not at all Being so restless that it is hard to sit still: 0 = Not at all Becoming easily annoyed or irritable: 0 = Not at all Feeling afraid as if something awful might happen: 0 = Not at all Total JUAN-7 score (0-4 normal; 5-9 mild; 10-14 moderate; 15-21 severe): 0 Source: Developed by Drs. Alex Wahl, Mason Phan and colleagues, with an educational jerzy from [employer]. JUAN-7 Assessment Billing JUAN-7 Assessment Tool: JUAN-7 Assessment 82961 Review of Systems Const Reports no additional complaints Eyes Reports no additional complaints ENT Reports no additional complaints Card Denies chest pain, Denies irregular heart rhythm, Denies lightheadedness and Denies dyspnea Resp Denies cough and Denies dyspnea GI Reports no additional complaints Reports no additional complaints Musc Reports as per HPI and Reports tingling Skin/Breast Denies rash Neuro Denies Abnormal speech present, Reports tingling and Reports paresthesias (Left lower extremity) Psych Reports no additional complaints Endo Reports no additional complaints Gerson/Lymph Reports no additional complaints Aller/Immun Reports no additional complaints Physical exam (Primary Care) Vital Signs: Last Vital Signs Temp 98.1 F 03/26/25 13:39 Pulse 63 03/26/25 13:39 Resp 16 03/26/25 13:39 BP 132/82 03/26/25 13:39 Pulse Ox 98 03/26/25 13:39 Oxygen Delivery Method Room Air 03/26/25 13:39 BMI result Body Mass Index 25.7 Tobacco/Smoking Status: Tobacco use Status Tobacco use date assessed 03/26/25 03/26/25 13:42 Patient Tobacco Use Status Never used Tobacco 03/26/25 13:32 e-Cigarette/Vaping Use Never Used 03/26/25 13:32 PHQ-9: PHQ-9 Score PHQ-9: Total score 3 03/26/25 13:42 Depression Screening Interpretation: Negative Thrive Assessment: Date of Thrive Assessment Date Thrive assessed 03/26/25 03/26/25 13:42 Currently or been in a relationship where the following occur: No concerns reported Advance Care Planning discussion: Completed/Scanned Date of discussion: 03/26/25 Who was present: patient Forms completed: Health Care Proxy Time spent: 16-45 minutes Actual minutes spent: 2 Const General: no acute distress and alert Nutritional Appearance: overweight Orientation/consciousness: patient oriented x3 HENMT Head: Yes normocephalic Ears: external ears normal, TM's normal bilaterally and EAC's normal General nose exam: Normal external nose present and No nasal discharge present Mouth: Normal oral and palatal mucosa present, oropharynx normal and moist mu cous membranes Eyes General: appearance normal, both eyes and all related structures Neck Neck: Yes full ROM, Yes no lymphadenopathy and Yes supple Chest Breast/axilla palpation: normal palpation of the breasts Resp Effort & Inspection: normal respiratory effort and able to speak in complete sentences Auscultation: clear to auscultation bilaterally Cardio Rate: regular rate Rhythm: regular rhythm Heart sounds: S1 normal heart sound present and S2 normal heart sound present GI Palpation (GI): Soft to palpation, nontender and no masses Auscultation: normal bowel sounds General: Yes deferred (Sees her OBGYN at [facility]) Back/Spine/Pelvis Thoracic/Lumbar Spine: thoraco-lumbar ROM normal, straight leg raise negative bilaterally and No paraspinal muscle tenderness Skin General skin exam: no rashes or lesions noted Neuro General: patient oriented x3, gait normal, tone normal, moves all extremities, Normal light touch and pain sensation, no focal motor deficits and normal sensation to monofilament Cranial nerves: Yes CN's II-XII intact bilaterally Cognition (Neuro): normal cognition Speech: No Abnormal speech present Extrem Other: Tenderness on palpation over left inguinal area, with pain elicited in left inguinal area on flexion of left hip joint General: Yes full ROM, Yes no joint enlargement, Yes no clubbing, cyanosis or edema and Yes no calf tenderness Psych Appearance: grossly normal and well kempt Mental Status: mental status grossly normal Speech and movement: Normal speech and movement present Affect: normal affect Attitude: cooperative Thought process: Normal thought process present Thought content: Normal thought content present Results Reviewed Results Reviewed: RUN: 04/08/25 1358 PAGE 1 [facility] [address] [place] [id number] Key Bed Installer: Flash Hernandez M.D. Specimen Inquiry Name: Rianna Patterson Age/Sex: 54/F : 1970 Unit#: [id number] Attend Dr: Cee Chavira MD Re03/22/25 Status: DEP REF Location: [facility] Dis ch: SPEC : [id number] ARMIN: 03/22/25 STATUS: COMP REQ : [id number] RECD: 03/22/[address]: Cee Chavira MD COMP: 03/22/25 ENTERED: 03/22/25 [facility] DR: ORDERED: CBC Auto Diff Test Result Flag Reference WBC 3.9 L 4.8-10.8 X10*3/uL RBC 4.20 4.20-5.50 X10*6/uL HGB 12.8 12.0-16.0 g/dl HCT 36.7 L 37.0-47.0 % MCV 87.4 80.0-98.0 fL MCH 30.5 27.0-33.0 pg MCHC 34.9 31.0-35.0 g/dl RDW 13.1 11.0-16.0 % PLT 231 160-400 X10*3/uL MPV 9.4 9.4-12.3 fL Neut Pct Auto 30.7 L 45-73 % ImGran Pct Auto 0.0 0.0-0.4 % Lymp Pct Auto 55.4 H 20-40 % [place] Pct Auto 10.3 2-11 % Eos Pct Auto 2.8 0-4 % Baso Pct Auto 0.8 0-2 % NRBC Pct Auto 0.0 0.0-0.2 /100WBC ANC Neut Abs # 1.2 L 2.0-8.3 x10*3/uL ImGran Abs Auto 0.00 0.00-0.03 X10*3/uL Lymph Abs Auto 2.2 1.2-4.9 X10*3/uL [place] Abs Auto 0.4 0.1-1.2 X10*3/uL Eos Abs Auto 0.1 0.0-0.4 X10*3/uL Baso Abs Auto 0.0 0.0-0.2 X10*3/uL NRBC Abs Auto 0.000 0.0-0.012 X10*3/uL Name: Rianna Patterson Age/Sex: 54/F : 1970 Unit#: [id number] Attend Dr: Cee Chavira MD Re03/22/25 Status: DEP REF Location: [facility] Disch: SPEC : [id number] ARMIN: 03/22/25 STATUS: COMP REQ : [id number] RECD: 03/22/[address] [facility] [address]: Cee Chavira MD COMP: 03/22/25 ENTERED: 03/22/25 [facility] DR: ORDERED: Met Prof Fast, AST, ALT, Lipid Panel Test Result Flag Reference Sodium 141 135-145 mmol/L Potassium 4.0 3.3-5.1 mmol/L CL 106 96-108 mmol/L CO2 27 22-29 mmol/L Gap 12 12-20 BUN 17 H 9-16 mg/dL Creat 0.75 0.5-1.4 mg/dL eGFR > 60 Chronic Kidney Disease: Estimated GFR < 60 mL/min/1.73m2 Severe Kidney Disease: Estimated GFR < 15 mL/min/1.73m2 FBS 92 60-99 mg/dL CA 9.4 8.4-10.2 mg/dL AST (GOT) 33 H 5-31 U/L ALT (GPT) 24 0-31 U/L Triglyceride 81 <150 mg/dL Desirable Triglyceride: less than 150 mg/dL Borderline High Triglyceride 150-199 mg/dL High Triglyceride: 200-499 mg/dL Very High Triglyceride: greater than or equal to 5OO mg/dL Cholesterol 184 <200 mg/dL Desirable Cholesterol: less than 200 mg/dL Borderline High Cholesterol: 200-239 mg/dL High Cholesterol: greater than 239 mg/dL LDL Calculated 108 H <100 mg/dL Desirable LDL: less than 100 mg/dL Near Optimal/Above Optimal LDL: 110-129 mg/dL Borderline High LDL: 130-159 mg/dL High LDL: 160-189 mg/dL Very High LDL: greater than or equal to 190 mg/dL HDL 60 >40 mg/dL Desirable HDL: greater than 40 mg/dL Coding Level of Care Code Est Pt Prev Care 40-64y(60106) Diagnoses Annual visit for general adult medical examination with abnormal findings Z00.01 Generalized anxiety disorder F41.1 Essential hypertension I10 Osteoarthritis of left hip, unspecified osteoarthritis type M16.12 Osteoarthritis type: unspecified Advanced directives, counseling/discussion Z71.89 Additional Codes PHQ-9 - 36713 - PHQ-9 Billing: Yes ([id number]) JUAN-7 Assessment Billing - JUAN-7 Assessment Tool: JUAN-7 Assessment 55534 ([id number]) Vital Signs *Quality* - Advance Care Planning discussion: Completed/Scanned ([id number]) Vital Signs *Quality* - Time spent: 16-45 minutes ([id number]) Assessment & Plan Assessment & Plan (1) Annual visit for general adult medical examination with abnormal findings: Code(s): Z00.01 - Encounter for general adult medical examination with abnormal findings Plan: - Continue lisinopril for blood pressure as prescribed. - Start vitamin D supplements @ 2000 IU or more daily. - Prepare for August surgery; follow pre-surgery instructions offered by Dr. Mcintosh. - Schedule and attend mammogram appointment. - Maintain low-impact exercises; swimming permissible without extensive leg work. - Review need for tetanus booster if required. - Avoid turmeric until post-surgery due to possible bleeding risk. -had a screening colonoscopy done by Dr. Morgan earlier this year, poor prep noted, repeat colonoscopy due again in 1-2 years (2) Generalized anxiety disorder: Code(s): F41.1 - Generalized anxiety disorder Category: Medical Plan: Continued on buspirone 5 mg once a day (3) Essential hypertension: Code(s): I10 - Essential (primary) hypertension Category: Medical Plan: Blood pressure goal is less than 130/80. Continue with lisinopril 5 mg daily Reinforced importance of following a low sodium diet, getting regular exercise, and lowering stress levels. (4) Osteoarthritis of left hip: Code(s): M16.12 - Unilateral primary osteoarthritis, left hip Category: Medical Qualifiers: Osteoarthritis type: unspecified Qualified Code(s): M16.12 - Unilateral primary osteoarthritis, left hip Plan: Management of the patient's left hip osteoarthritis involves continued monitoring of her response to medications and preparations for surgery in August, under the care of Dr. Kike Mcintosh. Current symptoms have been impeding her activity, notably in gym routines, necessitating adjustments in physical activity to alleviate hip discomfort.heduling a mammogram, and reviewing any problematic trends in blood work, especially lymphocyte levels, mindful of potential underlying conditions. Patient was informed and verbally consented to the use of an ambient scribe for clinic note documentation during this visit. (5) Advanced directives, counseling/discussion: Code(s): Z71.89 - Other specified counseling Plan: Initiated the conversation about Advanced Directives. Advanced Directives help patients prepare for current and future decisions about their medical treatment and place of care. Discussed with patient that it is a process where a patients current condition and prognosis are reviewed, their wishes for information regarding their illness are elicited, and likely medical dilemmas are presented and options discussed. Healthcare proxy form completed today. The form can be amended as needed, reviewed yearly and make changes as needed Orders: Orders MM tomosynthesis screening BI 03/26/25 Z12.31 - Encounter for screening mammogram for malignant neoplasm of breast Medications: New buspirone 5 mg PO DAILY 90 tabs 1RF Refilled 2 lisinopril 5 mg PO DAILY 90 tabs 1RF
[2025-03-26 13:39] VITALS: BP 132/82; PULSE 63; RESP 16; TEMP 36.7; O2SAT 98; BMI 25.7
== END 2025-03-26 14:13 | disposition home or self-care (01) ==
LOC: HO.HMCC 13:22
PROVIDERS: PCP Internal Medicine; Visit Provider Internal Medicine
DX: Z00.00 Encounter for general adult medical examination without abnormal findings (principal); F41.1 Generalized anxiety disorder; I10 Essential (primary) hypertension; M16.12 Unilateral primary osteoarthritis, left hip; Z71.89 Other specified counseling

== ENCOUNTER → 2025-03-26 13:21 | Outpatient (BNVA) | payer OTHER, SELFPAY | PROVIDERS: PCP Internal Medicine; Visit Provider Internal Medicine | DX: Z00.01 Encounter for general adult medical examination with abnormal findings (principal); F41.1 Generalized anxiety disorder; I10 Essential (primary) hypertension; M16.12 Unilateral primary osteoarthritis, left hip; Z79.899 Other long term (current) drug therapy; Z71.89 Other specified counseling | CPT/HCPCS: 96127; 99396 ==

== ENCOUNTER 2025-07-08 13:41 | Outpatient (REF) | payer OTHER, SELFPAY ==
--- NOTE | ~2025-07-08 | MM_ITS ---
EXAMINATION: MM SCREENING DIGITAL BREAST TOMOSYNTHESIS, BILATERAL CLINICAL INFORMATION: Screening. Asymptomatic. COMPARISON: None. This is a baseline study. TECHNIQUE: Digital breast tomosynthesis is performed in both the craniocaudal and mediolateral oblique views along with computer-aided detection (CAD). FINDINGS: BREAST COMPOSITION: The breasts are extremely dense, which lowers the sensitivity of mammography (ACR BI-RADS breast composition Category d). BILATERAL BREASTS: No significant masses, suspicious calcifications or other abnormalities are seen in either breast. MM/MM tomosynthesis screening BI IMPRESSION: BILATERAL BREASTS: Negative, no mammographic evidence of malignancy. Normal interval follow-up is recommended in 12 months. ASSESSMENT: BI-RADS 1 - Negative RECOMMENDATION: Routine annual mammography screening. FOLLOW-UP: 1 year F/U This examination should not preclude the clinical evaluation of a suspicious palpable abnormality. This patient's information was entered into a reminder system with a target due date for their next mammogram. Electronically signed by: Susan Zafar MD 07/12/2025 06:34 PM EDT
== END 2025-07-08 13:42 | disposition home or self-care (01) ==
LOC: HO.MAMMO 13:41
PROVIDERS: PCP Internal Medicine; Visit Provider Internal Medicine
DX: Z12.31 Encounter for screening mammogram for malignant neoplasm of breast (principal)
CPT/HCPCS: 77063; 77067

== ENCOUNTER → 2025-07-08 13:45 | Outpatient (BNV) | payer OTHER, SELFPAY | PROVIDERS: PCP Internal Medicine; Visit Provider Radiology Body Imaging | DX: Z12.31 Encounter for screening mammogram for malignant neoplasm of breast (principal) | CPT/HCPCS: 77063; 77067 ==

== ENCOUNTER 2025-10-01 13:55 | Outpatient (AMB) | payer OTHER, SELFPAY ==
--- NOTE | 2025-10-01 14:00 | A.OFFVIS_ITS ---
Vital Signs 10/01/25 14:09 Height 5 ft 1 in Weight 129 lb 6.581 oz BMI 24.4 BP 130/80 Blood Pressure Location Lt brachial Position Sitting Pulse 70 Pulse Source Pulse Oximeter Pulse Oximetry (%) 98 Oxygen Delivery Method Room Air Intake Visit Reasons: OA Intake Note: Patient presents for OA follow up. Allergies No Known Allergies Allergy (Verified 10/01/25 14:05) Medication List - Last Reconciled 10/01/25 by Kelly Fernando MD acetaminophen ER (Tylenol Arthritis Pain) 1,300 mg PO Q12H lisinopril 5 mg PO DAILY multivitamin 1 tab PO DAILY HPI Comments Details: Patient is 55-year-old female with hypertension, generalized anxiety disorder and polyarticular osteoarthritis status post left hip replacement here today for follow up Interval History: Patient last seen 08/19/[address] Amezcua. - not on any DMARDs - following up after completion of blood work, unable to do x-rays - She attended a couple of physical therapy sessions. She continues to get lower back pain especially after sitting down for some time. Today - Not on DMARDs - Had left hip replacemetn - Doing well - Concerned about hand pain Rheumatologic History: Initial history: This is a 52-year-old female who presents for evaluation of multiple joint pain and positive rheumatoid factor. The condition started about a year ago the patient noticing episodes of 3-4 days to 1 week long episode of bilateral shoulder pain and significant stiffness that lasts almost all day. She denied any injuries to the shoulder. Then self resolves for a few weeks then comes back lasting 3-4 days to 1 week. She does not recall any injury or trauma to the shoulder. She also states that she has lower back pain and stiffness especially when getting up after sitting down for a while. Low back pain does not radiate to her lower extremities. She also states that feels that her feet are turning and are painful. Currently she does not have any shoulder pain. She denies any skin rashes. No history of DVT/PE. No history of miscarriages or abortions. She is unaware of any family history of autoimmune rheumatic disease Current Rheumatology Medication(s): PENDING SALE TO [facility] Medical History (Updated 10/01/25 @ 14:47 by Kelly Fernando MD) Bunion of great toe of right foot Bunion of great toe of left foot COVID-19 vaccination refused Refused influenza vaccine Osteoarthritis Essential hypertension Overweight Elevated rheumatoid factor History of alcoholism Polyarthralgia Hx of fracture of nose Generalized anxiety disorder Surgical History (Updated 10/01/25 @ 14:09 by ESPERANZA Nayak) History of total hip replacement Hx of wisdom tooth extraction H/O colonoscopy Hx of section Family History Father No problems noted. 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 Cognitive needs: No Hearing needs: No Vision needs: No Review of Systems Narrative Review of Systems Constitutional: Denies fever, chills, weight loss ENT: Denies vision changes, eye pain or eye redness, dental caries, dry mouth GI: Denies nausea, vomiting, diarrhea, abdominal pain, change in BM Pulm: Denies SOB, IGLESIAS, hemoptysis, wheezing Cards: Denies chest pain, palpitations Skin: Denies Raynaud's, rash, nail changes, photosensitivity, CRYPTOLOGIC LINGUIST: Denies headaches, weakness, paresthesias, recurrent falls MSK: as per HPI All other systems reviewed and are unremarkable except noted above Physical Exam Exam Exam: Vital signs reviewed Physical Examination CONSTITUITIONAL Patient alert and cooperative. Well appearing and in no apparent painful distress MSK Hands * Right Hand: Able to make a fist. No swelling or tenderness to palpation of the MCPs, PIPs or DIPs. * Left Hand: Able to make a fist. No swelling or tenderness to palpation of the MCPs, PIPs or DIPs. * Prominent Herbedens and Bouchards nodes noted bilaterally Wrists * Right Wrist: Full ROM to flexion and extension. No swelling or TTP * Left Wrist: Full ROM to flexion and extension. No swelling or TTP Elbows * Right Elbow: Full ROM. No swelling or TTP. No TTP of the medial epicondyle. No TTP of the lateral epicondyle * Left Elbow: Full ROM. No swelling or TTP. No TTP of the medial epicondyle. No TTP of the lateral epicondyle Shoulders * Right shoulder: Full ROM. No swelling noted. No TTP of the AC joint. No TTP of the subacromial bursa. No TTP of the posterior shoulder * Left shoulder: Full ROM. No swelling noted. No TTP of the AC joint. No TTP of the subacromial bursa. No TTP of the posterior shoulder Knees * Right knee: Full ROM. No swelling noted. No TTP of the knee joint line. No TTP of pes anserine bursa * Left knee: Full ROM. No swelling noted. No TTP of the knee joint line. No TTP of pes anserine bursa. Ankles * Right ankle: Good ankle dorsiflexion and plantar flexion. No swelling. No TTP of the ankle joint * Left ankle: Good ankle dorsiflexion and plantar flexion. No swelling. No TTP of the ankle joint Feet * Right foot: Negative squeeze test * Left foot: Negative squeeze test Tender points? * No tenderness to palpation of the bilateral trapezius, supraspinatus, anterior costochondral junctions, bilateral suboccipital muscle insertions SKIN No rashes Vital Signs: Last Vital Signs Pulse 70 10/01/25 14:09 BP 130/80 10/01/25 14:09 Pulse Ox 98 10/01/25 14:09 Oxygen Delivery Method Room Air 10/01/25 14:09 BMI result Body Mass Index 24.4 Results Reviewed Results Reviewed: Laboratory Tests 08/11/23 01/10/24 03/22/25 07:06 07:07 06:28 WBC RBC Hgb Hct Plt Count ESR 9 Sodium 141 Potassium 4.0 Chloride 106 Carbon Dioxide 27 BUN 17 H Creatinine 0.75 AST 31 33 H ALT 22 24 03/22/25 08:28 WBC 3.9 L RBC 4.20 Hgb 12.8 Hct 36.7 L Plt Count 231 ESR Sodium Potassium Chloride Carbon Dioxide BUN Creatinine AST ALT Laboratory Tests 08/11/23 08/11/23 07:00 07:06 Rheumatoid Factor 14.3 Cycl Citrul Peptide IgG <16 GAUTAM Screen POSITIVE A GAUTAM Titer 1:80 H SS-A/Ro Antibody <1.0 NEG SS-B/La Antibody <1.0 NEG Sm (Prater) Antibody <1.0 NEG SM/SILK SNAPPER IgG Antibody <1.0 NEG Double Strand DNA Ab 3 Complement C3 110 Complement C4 24 Assessment & Plan Assessment & Plan (1) Osteoarthritis: Code(s): M19.90 - Unspecified osteoarthritis, unspecified site Category: Medical Qualifiers: Osteoarthritis location: multiple joints Osteoarthritis type: primary Qualified Code(s): M15.0 - Primary generalized (osteo)arthritis Plan: #Polyarticular OA Patient is a 55-year-old female with polyarticular osteoarthritis here today for follow up. Now status post left hip replacement. Discussed with patient about the diagnosis of osteoarthritis and its natural history Discussed therapeutic options including topical NSAIDs, oral NSAIDs, acetaminophen and procedures Patient trialed Celebrex in her postop period and had good efficacy from this so we will continue. Has good kidney and liver function Plan - Celebrex 200mg daily - RTC 6 months - Labs before visit: CBC, CMP (2) Encounter for long-term (current) use of NSAIDs: Code(s): Z79.1 - residential (current) use of non-steroidal anti-inflammatories (NSAID) Plan: #Long-term Use of NSAIDs Discussed with patient the benefits and risk of NSAIDs for managing the rheumatic condition Benefits include: - Reduced the pain, improved mobility, and increased participation in activities Risks include: - GI upset, potential also worsening or formation (especially in patients > 65 years old) Recommended using proton pump inhibitors (PPIs) for the duration of NSAID use to reduce the risk of gastric ulcers Plan This is my 1st visit with the patient. I spent 30 minutes reviewing the record and labs, taking a history, examining the patient, discussing the treatment plan, ordering diagnostic work up and documenting in the medical record Orders: Orders Complete Blood Count Auto Diff 6 Months Z79.899 - Other terminal gauger supervisor (current) drug therapy Comprehensive Met. Panel 6 Months Z79.899 - Other senior living (current) drug therapy Medications: New celecoxib (Celebrex) 200 mg PO DAILY 90 caps 1RF M19.90 - Unspecified osteoarthritis, unspecified site Coding Level of Care Code Est Pt Level 4 (03750) Diagnoses Primary osteoarthritis involving multiple joints M15.0 Osteoarthritis location: multiple joints Osteoarthritis type: primary Encounter for long-term (current) use of NSAIDs Z79.1
[2025-10-01 14:09] VITALS: BP 130/80; PULSE 70; O2SAT 98; BMI 24.4
== END 2025-10-01 14:47 | disposition home or self-care (01) ==
LOC: HO.RHES 13:56
PROVIDERS: PCP Internal Medicine; Visit Provider Student in an Organized Health Care Education/Training Program
DX: M15.0 Primary generalized (osteo)arthritis (principal); Z79.1 Long term (current) use of non-steroidal anti-inflammatories (NSAID)
CPT/HCPCS: 99214

== ENCOUNTER → 2025-10-01 13:55 | Outpatient (BNVA) | payer OTHER, SELFPAY | PROVIDERS: PCP Internal Medicine; Visit Provider Student in an Organized Health Care Education/Training Program | DX: M15.0 Primary generalized (osteo)arthritis (principal); Z79.1 Long term (current) use of non-steroidal anti-inflammatories (NSAID) | CPT/HCPCS: 99212 ==